=== PATIENT | female | born 1940 | race Caucasian/White ===

== ENCOUNTER 2018-04-04 13:21 | Emergency (ER) | payer MEDICARE, BC ==
[~2018-04-04] VITALS: Ht 154.9 cm; Wt 116.1 kg
--- NOTE | 2018-04-04 13:31 | NUR ---
BIBRA 102, ELEVATED BP, HAD SYNCOPAL EPISODE YESTERDAY PER EMS. ALSO C/O SINUS AREA PAIN, DENIES CP, DIZZINESS, SOB, NUMBNESS/TINGLING @ THIS TIME. TOOK BP MEDS. TO ER BED 9, CHANGED TO GOWN, HOOKED TO MONITOR, DR COVARRUBIAS AT BEDSIDE.
[2018-04-04 13:39] LABS: BASOPHILS % (AUTO) 0.7 % (0.0-2.0); EOSINOPHILS % (AUTO) 2.5 % (0.0-6.0); HEMATOCRIT 43 % (33-45); HEMOGLOBIN 14.4 g/dL (11.5-14.8); LYMPHOCYTES # (AUTO) 1.6 /CMM (0.8-4.8); LYMPHOCYTES % (AUTO) 26.8 % (20.0-44.0); MEAN CORPUSCULAR HGB CONC 33 g/dl (31.0-36.0); MEAN CORPUSCULAR VOLUME 90 fL (82-100); MONOCYTES # (AUTO) 0.4 /CMM (0.1-1.30); MONOCYTES % (AUTO) 6.7 % (2.0-12.0); NEUTROPHILS # (AUTO) 3.9 /CMM (1.8-8.9); NEUTROPHILS % (AUTO) 63.3 % (43.0-81.0); PLATELET COUNT (AUTO) 255 /CMM (150-450); RED BLOOD CELL COUNT(AUTO) 4.81 MIL/uL (4.0-5.2); WHITE BLOOD COUNT (AUTO) 6.1 K/uL (4.3-11.0)
[2018-04-04] MEDS ORDERED: ALPR0.5T8 PO (13:40)
[2018-04-04] MEDS ORDERED: METF-440 PO (13:40)
[2018-04-04] MEDS ORDERED: METO25TA20 PO (13:40)
[2018-04-04] MEDS ORDERED: PANT40TA4 PO (13:40)
[2018-04-04] MEDS ORDERED: CITA20TA16 PO (13:40)
[2018-04-04] MEDS ORDERED: OXYB10TA PO (13:40)
[2018-04-04] MEDS ORDERED: HYDR-3976 PO (13:40)
[2018-04-04] MEDS ORDERED: ALLO100T PO (13:40)
[2018-04-04] MEDS ORDERED: ENAL1TAB9 PO (13:40)
[2018-04-04 13:45] LABS: CALCIUM, SERUM 9.2 mg/dL (8.5-10.1); CARBON DIOXIDE 30 mmol/L (21-32); CHLORIDE 99 mmol/L (98-107); CREATININE 1.3 mg/dL (0.6-1.3); GLUCOSE 222 mg/dL (74-106); POTASSIUM 3.8 mmol/L (3.5-5.1); SODIUM SERUM 135 mmol/L (136-145); UREA NITROGEN, BLOOD 25 mg/dL (7-18)
[2018-04-04 14:36] VITALS: BP 168/96
--- NOTE | 2018-04-04 14:36 | NUR ---
Patient discharged to home in stable condition. Written and verbal after care instructions given. Patient verbalizes understanding of instruction.
== END 2018-04-04 14:37 | disposition home or self-care (01) ==
LOC: ER 13:25
DX: I10 Essential (primary) hypertension (principal); G89.29 Other chronic pain; I44.5 Left posterior fascicular block; I45.10 Unspecified right bundle-branch block; R51 Headache; R42 Dizziness and giddiness; Z98.890 Other specified postprocedural states; Z79.84 Long term (current) use of oral hypoglycemic drugs; Z79.899 Other long term (current) drug therapy
CPT/HCPCS: 36415; 70450-TC; 71045-TC; 80048-TC; 84484-TC; 85025-TC

== ENCOUNTER 2018-07-16 10:26 | Inpatient (IN) | payer MEDICARE, BC ==
[~2018-07-16] VITALS: Ht 162.6 cm; Wt 117.0 kg
[~2018-07-16 10:26] MED LIST: ALLO100T PO; ALPR0.5T8 PO; CITA20TA16 PO; ENAL1TAB9 PO; HYDR-3976 PO; METF-440 PO; METO25TA20 PO; OXYB10TA PO; PANT40TA4 PO
--- NOTE | 2018-07-16 10:35 | NUR ---
BIBRA S/P SYNCOPAL EPISODE AT HOME WHILE COOKING, WAS FOUND ON THE FLOOR BY . ALSO C/O BACK PAIN. TO ER BED 12, HOOKED TO MONITOR, CHANGED TO GOWN, PROVIDED W WARM BLANKET, AWAITING MD GARDUNO.
--- NOTE | 2018-07-16 10:36 | NUR ---
ARASELI COLINDRES AT BEDSIDE
[2018-07-16 10:53] LABS: BASOPHILS % (AUTO) 0.7 % (0.0-2.0); EOSINOPHILS % (AUTO) 4.3 % (0.0-6.0); HEMATOCRIT 41 % (33-45); HEMOGLOBIN 13.3 g/dL (11.5-14.8); LYMPHOCYTES # (AUTO) 1.8 /CMM (0.8-4.8); LYMPHOCYTES % (AUTO) 25.9 % (20.0-44.0); MEAN CORPUSCULAR HGB CONC 33 g/dl (31.0-36.0); MEAN CORPUSCULAR VOLUME 92 fL (82-100); MONOCYTES # (AUTO) 0.5 /CMM (0.1-1.30); NEUTROPHILS # (AUTO) 4.3 /CMM (1.8-8.9); NEUTROPHILS % (AUTO) 62.1 % (43.0-81.0); PLATELET COUNT (AUTO) 232 /CMM (150-450); RED BLOOD CELL COUNT(AUTO) 4.41 MIL/uL (4.0-5.2)
[2018-07-16] MEDS ORDERED: IV NS 0.9% 500 ML BAG IV ONE (11:00)
[2018-07-16 11:01] LABS: CALCIUM, SERUM 8.9 mg/dL (8.5-10.1); CARBON DIOXIDE 23 mmol/L (21-32); CHLORIDE 103 mmol/L (98-107); CREATININE 1.2 mg/dL (0.6-1.3); GLUCOSE 187 mg/dL (74-106); SODIUM SERUM 140 mmol/L (136-145); UREA NITROGEN, BLOOD 25 mg/dL (7-18)
[2018-07-16] MEDS ORDERED: ESCI20TA PO (11:06)
--- NOTE | 2018-07-16 12:09 | NUR ---
307 TELE SYNCOPE VANDANA DNP
[2018-07-16] MEDS ORDERED: LABETALOL 20 MG/4 ML VIAL IV ONE (12:30)
--- NOTE | 2018-07-16 12:30 | NUR ---
REPORT GIVEN TO OLIMPIA BRYANT OF TELE UNIT
[2018-07-16 15:30] VITALS: BP 186/72
--- NOTE | 2018-07-16 15:30 | NUR ---
MOTEL FRONT DESK ATTENDANTFEED MIXER NOTE PT ARRIVED TO TELE UNIT IN STABLE CONDITION VIA GURNEY ACCOMPANIED BY ER STAFF. PT IS A/O X4, AFEBRILE. RESPIRATIONS ARE EVEN AND UNLABORED, NOT IN ANY ACUTE DISTRESS NOTED. PT C/O GENERALIZED PAIN W/ PL /10. NO C/O SOB, N/V. PUPILS ARE REACTIVE TO LIGHT, BILATERAL HAND WIRER HELPER ARE STRONG AND EQUAL. ABDOMEN IS ROUND AND FIRM, DENIES ANY BLADDER DISCOMFORT AND IS INCONTINENT. IV SITE TO LEFT HAND 20G INTACT, NO INFILTRATION NOTED. DRESSING KEPT CLEAN AND DRY. DISCOLORATION NOTED TO BLE, REDNESS TO BREAST FOLDS AND BILATERAL HEELS, LESIONS NOTED TO RIGHT/LEFT LOWER BACK. PICTURES TAKEN AND PLACED IN CHART. NO OPEN SKIN NOTED. SKIN KEPT CLEAN AND DRY. INSTRUCTED PT TO USE CALL LIGHT WHEN ASSISTANCE IS NEEDED, CALL LIGHT IS LEFT WITHIN REACH. DR. ROSS AWARE OF ADMISSION. WILL CONTINUE TO MONITOR THROUGHOUT SHIFT FOR CONTINUITY OF CARE.
[2018-07-16 16:00] VITALS: BP 186/72
--- NOTE | 2018-07-16 19:25 | NUR ---
RN NOTES CALLED DR. NICK ROSS AND ASKED HIM FOR ADMISSION ORDER.. PT IS ALREADY COMPLAINING OF BACK PAIN... DR. NICK ROSS WILL PUT THE ORDER IN THE COMPUTER
[2018-07-16] MEDS ORDERED: ALPRAZOLAM 0.5 MG TABLET PO PRN (19:30)
--- NOTE | 2018-07-16 19:30 | NUR ---
whipped topping finisher notes Received PT from morning nurse. PT is alert and oriented X4. PT is sitting at the bed. No pain or any distress at tis time. No nausea or vomiting. Respiration is equal and unlabored. No SOB. PT is on corporate financial analyst SR. IV is intact, patent and flush without resistance. Safety precautions is maintained. Bed at low position and call light is within reach. Will continue to monitor.
[2018-07-16 20:00] VITALS: BP 172/74
[2018-07-16] MEDS ORDERED: ONDANSETRON HCL/PF 4 MG/2 ML VIAL IVP PRN (20:00)
[2018-07-16] MEDS ORDERED: ACETAMINOPHEN 325 MG TABLET PO PRN (20:00)
[2018-07-16] MEDS ORDERED: DEXTROSE 50%-WATER 50 ML DISP.SYRIN IV PRN (20:00)
[2018-07-16] MEDS ORDERED: Z GUARD REMEDY 2 OZ OINT TP PRN (20:00)
[2018-07-16] MEDS: HYDROCODONE/APAP 10/325MG 1 EA TABLET PO PRN (20:01)
--- NOTE | 2018-07-16 20:04 | NUR ---
RN NOTES COMPLAINED OF TERRIBLE BACK PAIN- NORCO 10/325MG PO GIVEN ORDERED, V/S STABLE
[2018-07-16] MEDS: BLOOD SUGAR DIAGNOSTIC 1 EACH STRIP IN SCH (21:22)
--- NOTE | 2018-07-16 22:00 | NUR ---
RN NOTES blood sugar-179, refused insulin coverage
[2018-07-17] VITALS (7 sets, daily range): BP systolic 136–177; BP diastolic 68–86
[2018-07-17] MEDS ORDERED: Z GUARD REMEDY 4 OZ OINT TP ONE (05:33)
[2018-07-17] MEDS: HYDROCODONE/APAP 10/325MG 1 EA TABLET PO PRN ×2 (05:35→16:32)
--- NOTE | 2018-07-17 05:37 | NUR ---
RN NOTES COMPLAINED OF BACK PAIN - NORCO 10/325 MG PO GIVEN ORDERED, V/S STABLE
[2018-07-17] MEDS: BLOOD SUGAR DIAGNOSTIC 1 EACH STRIP IN SCH ×4 (05:58→23:17)
--- NOTE | 2018-07-17 06:20 | NUR ---
pigeon fancier notes continue PT is on color television console monitor - SR 73 bpm.
--- NOTE | 2018-07-17 06:20 | NUR ---
glassware maker demonstrator notes PT is alert and oriented X4. PT is sitting at the bed. No complaint of pain or any distress at this time. Respiration is equal and unlabored. NO SOB. VS is stable. IV site is intact, patent and infusing well NS at 75ml/hr. All meds including Pain meds have been given and assist all needs. Safety precautions is maintained. Bed at low position and call light is within reach. Will endorse to morning shift for PETRA.
[2018-07-17 06:43] LABS: BASOPHILS % (AUTO) 0.5 % (0.0-2.0); EOSINOPHILS % (AUTO) 4.3 % (0.0-6.0); HEMATOCRIT 42 % (33-45); HEMOGLOBIN 13.8 g/dL (11.5-14.8); LYMPHOCYTES # (AUTO) 1.9 /CMM (0.8-4.8); LYMPHOCYTES % (AUTO) 26.3 % (20.0-44.0); MEAN CORPUSCULAR HGB CONC 33 g/dl (31.0-36.0); MEAN CORPUSCULAR VOLUME 91 fL (82-100); MONOCYTES # (AUTO) 0.5 /CMM (0.1-1.30); MONOCYTES % (AUTO) 7.2 % (2.0-12.0); NEUTROPHILS # (AUTO) 4.3 /CMM (1.8-8.9); NEUTROPHILS % (AUTO) 61.7 % (43.0-81.0); PLATELET COUNT (AUTO) 250 /CMM (150-450); RED BLOOD CELL COUNT(AUTO) 4.63 MIL/uL (4.0-5.2)
--- NOTE | 2018-07-17 07:34 | NUR ---
REAL ESTATE ANALYST OPENING NOTES RECEIVED PT RESTING ON BED. AWAKE, A/O X4. ON SUPPLEMENTARY OXYGEN AT 2-3LPM, WITH NO ACUTE RESPIRATORY DISTRESS NOTED. ON TELEMONITORING WITH SR, HR OF 70. PT STATED SHE HAS LOWER BACK PAIN AND JUST HAD NORCO, AWARE IT TAKES TIME TO TAKE EFFECT. IVF NS AT 75ML/HR TO LEFT HAND G20, INTACT AND INFUSING WELL. PT DENIES ANY CONCERNS AND QUESTIONS AT THIS MOMENT. PT KEPT COMFORTABLE IN BED. HOB ELEVATED. CALL LIGHT AND FLUID KEPT WITHIN REACH. PT'S BED IN LOWEST, LOCKED POSITION WITH SR X2. WILL CONTINUE PLAN OF CARE.
[2018-07-17 07:46] LABS: ALANINE AMINOTRANSFERASE 38 U/L (12-78); ALBUMIN 3.3 g/dL (3.4-5.0); ALKALINE PHOSPHATASE 71 U/L (46-116); ASPARTATE AMINOTRANSFERASE 24 U/L (15-37); BILIRUBIN,TOTAL 0.5 mg/dL (0.2-1.0); CALCIUM, SERUM 9.1 mg/dL (8.5-10.1); CARBON DIOXIDE 27 mmol/L (21-32); CHLORIDE 103 mmol/L (98-107); CREATININE 1.2 mg/dL (0.6-1.3); GLUCOSE 138 mg/dL (74-106); MAGNESIUM 1.7 mg/dL (1.8-2.4); PHOSPHORUS 4.6 mg/dL (2.5-4.9); POTASSIUM 4.3 mmol/L (3.5-5.1); SODIUM SERUM 140 mmol/L (136-145); TOTAL PROTEIN, SERUM 7.8 g/dL (6.4-8.2); UREA NITROGEN, BLOOD 18 mg/dL (7-18)
[2018-07-17 07:53] LABS: CHOLESTEROL 196 mg/dL (<200); HDL CHOLESTEROL 51 mg/dL (40-60); LDL 115 mg/dL (0-99); THYROID STIMULATING HORMONE 4.073 uIU/mL (0.358-3.74); TRIGLYCERIDES 203 mg/dL (30-150)
[2018-07-17] MEDS: PANTOPRAZOLE 40 MG TABLET.DR PO SCH (07:58)
[2018-07-17] MEDS: ALLOPURINOL 100 MG TABLET PO SCH (08:18)
[2018-07-17] MEDS: METFORMIN 500 MG TABLET PO SCH ×2 (08:18→16:19)
[2018-07-17] MEDS: ESCITALOPRAM OXALATE (10 MG) 10 MG TABLET PO SCH (08:19)
[2018-07-17] MEDS: ENOXAPARIN SODIUM 40 MG/0.4 ML DISP.SYRIN SQ SCH (08:20)
[2018-07-17] MEDS ORDERED: OXYBUTYNIN CHLORIDE ER 5 MG TAB PO SCH (09:00)
[2018-07-17] MEDS: Magnesium 1GM/D5W 100ML PREMIX 100 ML IV SCH ×2 (09:22→10:27)
[2018-07-17] MEDS: LOSARTAN POTASSIUM 50 MG TABLET PO SCH (09:22)
--- NOTE | 2018-07-17 09:37 | NUR ---
WEB MARKETING SPECIALIST NOTES CALLED PHARMACY TWICE REGARDING OXYBUTYRIN MEDICINE. SPOKE TO WILY, STATED "HOLD IT FOR NOW, WORKING ON IT." PT MADE AWARE. AWAITING FOR MEDICINE TO [facility].
[2018-07-17] MEDS: INSULIN REGULAR, HUMAN 100 UNIT/ML 3 ML VIAL SQ PRN ×2 (12:01→17:22)
--- NOTE | 2018-07-17 14:30 | NUR ---
SHIM PLUG CUTTER NOTES PT TECHNICALLY DID NOT MISS A DOSE OF DITROPAN XL SCHEDULED AT 0900 DUE TO PHARMACY WASN'T ABLE TO PROVIDE THE MEDICINE. PHARMACY WAS CALLED TWICE AND SPOKE TO SULEMA REGARDING MEDICINE EARLIER THIS MORNING AND BEFORE LUNCH TIME, UNTIL MEDICINE WAS DISCONTINUED, AND SHOWS MISSED DOSE AND CHANGED TO A NEW MEDICINE; WITHOUT SULEMA NOTIFYING RN IN CHARGE OF THE CHANGE. JIMMY/RADHA MADE AWARE WELL.
[2018-07-17] MEDS: IV NS 0.9% 1,000 ML IV PRN (14:57)
[2018-07-17] MEDS: OXYBUTYNIN CHLORIDE 5 MG TABLET PO SCH (16:20)
--- NOTE | 2018-07-17 18:40 | NUR ---
AEROSPACE CONTROL AND WARNING SYSTEMS OPENING NOTES PT REMAINS RESTING ON BED. AWAKE, A/O X4. ON SUPPLEMENTARY OXYGEN AT 2LPM, WITH NO ACUTE RESPIRATORY DISTRESS NOTED. ON TELEMONITORING WITH SR, HR OF 98. PT DENIES PAIN AT THIS MOMENT. IVF NS AT 75ML/HR TO LEFT HAND G20, INTACT AND INFUSING WELL. PT DENIES ANY CONCERNS AND QUESTIONS AT THIS MOMENT. ALL NEEDS AND CARE PROVIDED. PT KEPT COMFORTABLE IN BED. HOB ELEVATED. CALL LIGHT AND FLUID KEPT WITHIN REACH. PT'S BED IN LOWEST, LOCKED POSITION WITH SR X2. WILL ENDORSE TO INCOMING NIGHT NURSE FOR PETRA. Addendum: 07/17/18 at 1842 by BRAIN PADILLA RN TELE CLOSING NOTES INSTEAD OF 'OPENING'
--- NOTE | 2018-07-17 19:10 | NUR ---
RESPIRATORY ASSISTANT NOTES RECEIVED PT IN BED AWAKE AND ABLE TO MAKE NEEDS KNOWN. PT A/O X4. RESPIRATIONS EVEN AND UNLABORED WITH NO S/S OF ACUTE DISTRESS OR SOB NOTED. PT DENIES PAIN AT THIS TIME. SAFETY MEASURES IN PLACE WITH BED IN LOWEST LOCKED POSITION AND SIDE RAILS UP X2. CALL LIGHT WITHIN REACH. WILL CONTINUE TO MONITOR.
--- NOTE | 2018-07-17 22:40 | NUR ---
TOPPER PRESS OPERATOR NOTES PT REFUSED INSULIN COVERAGE.
[2018-07-18] VITALS: BP 158/72
[2018-07-18] MEDS: HYDROCODONE/APAP 10/325MG 1 EA TABLET PO PRN ×3 (00:31→14:37)
[2018-07-18 04:00] VITALS: BP 139/70
[2018-07-18] MEDS: IV NS 0.9% 1,000 ML IV PRN (07:09)
[2018-07-18] MEDS: BLOOD SUGAR DIAGNOSTIC 1 EACH STRIP IN SCH ×4 (07:16→22:03)
--- NOTE | 2018-07-18 07:17 | NUR ---
VEHICLE MAINTENANCE TECHNICIAN NOTES PT REFUSED MORNING INSULIN COVERAGE.
--- NOTE | 2018-07-18 07:30 | NUR ---
FIXING MACHINE OPERATOR OPENING NOTES RECEIVED PT RESTING ON BED. AWAKE, A/O X4. ON SUPPLEMENTARY OXYGEN AT 2-3LPM, WITH NO ACUTE RESPIRATORY DISTRESS NOTED. ON TELEMONITORING WITH SR, HR OF 96. PT DENIES ANY PAIN AT THIS MOMENT. IVF NS AT 75ML/HR TO LEFT HAND G20, INTACT AND INFUSING WELL. PT DENIES ANY CONCERNS AND QUESTIONS AT THIS MOMENT. PT KEPT COMFORTABLE IN BED. HOB ELEVATED. CALL LIGHT AND FLUID KEPT WITHIN REACH. PT'S BED IN LOWEST, LOCKED POSITION WITH SR X2. WILL CONTINUE PLAN OF CARE.
--- NOTE | 2018-07-18 07:53 | NUR ---
SUPERVISOR DIE CASTING NOTES PT IN BED AWAKE AND ABLE TO MAKE NEEDS KNOWN. PT A/O X4. RESPIRATIONS EVEN AND UNLABORED WITH NO S/S OF ACUTE DISTRESS OR SOB NOTED THROUGHOUT SHIFT. PT DENIES PAIN AT THIS TIME. SAFETY MEASURES IN PLACE WITH BED IN LOWEST LOCKED POSITION AND SIDE RAILS UP X2. CALL LIGHT WITHIN REACH. WILL ENDORSE TO ONCOMING NURSE FOR PETRA.
[2018-07-18 08:00] VITALS: BP 162/74
[2018-07-18] MEDS: PANTOPRAZOLE 40 MG TABLET.DR PO SCH (08:00)
[2018-07-18] MEDS: METFORMIN 500 MG TABLET PO SCH ×2 (08:00→16:10)
[2018-07-18] MEDS: OXYBUTYNIN CHLORIDE 5 MG TABLET PO SCH ×2 (08:00→16:10)
[2018-07-18] MEDS: ESCITALOPRAM OXALATE (10 MG) 10 MG TABLET PO SCH (08:00)
[2018-07-18] MEDS: ALLOPURINOL 100 MG TABLET PO SCH (08:00)
[2018-07-18] MEDS: LOSARTAN POTASSIUM 50 MG TABLET PO SCH (08:03)
[2018-07-18] MEDS: ENOXAPARIN SODIUM 40 MG/0.4 ML DISP.SYRIN SQ SCH (08:05)
[2018-07-18 08:32] LABS: BASOPHILS # (AUTO) 0.1 /CMM (0.0-0.2); BASOPHILS % (AUTO) 0.9 % (0.0-2.0); EOSINOPHILS % (AUTO) 3.4 % (0.0-6.0); HEMATOCRIT 40 % (33-45); HEMOGLOBIN 13.1 g/dL (11.5-14.8); LYMPHOCYTES # (AUTO) 1.2 /CMM (0.8-4.8); MEAN CORPUSCULAR HGB CONC 33 g/dl (31.0-36.0); MEAN CORPUSCULAR VOLUME 92 fL (82-100); MONOCYTES # (AUTO) 0.6 /CMM (0.1-1.30); MONOCYTES % (AUTO) 8.6 % (2.0-12.0); NEUTROPHILS # (AUTO) 4.5 /CMM (1.8-8.9); NEUTROPHILS % (AUTO) 68.1 % (43.0-81.0); PLATELET COUNT (AUTO) 199 /CMM (150-450); RED BLOOD CELL COUNT(AUTO) 4.31 MIL/uL (4.0-5.2); WHITE BLOOD COUNT (AUTO) 6.5 K/uL (4.3-11.0)
[2018-07-18] MEDS: VALSARTAN 80 MG TABLET PO SCH (09:22)
[2018-07-18 10:00] VITALS: BP 142/68
[2018-07-18 10:07] LABS: ALANINE AMINOTRANSFERASE 32 U/L (12-78); ALKALINE PHOSPHATASE 67 U/L (46-116); ASPARTATE AMINOTRANSFERASE 19 U/L (15-37); BILIRUBIN,TOTAL 0.4 mg/dL (0.2-1.0); CALCIUM, SERUM 8.6 mg/dL (8.5-10.1); CARBON DIOXIDE 27 mmol/L (21-32); CHLORIDE 103 mmol/L (98-107); CREATININE 1.3 mg/dL (0.6-1.3); GLUCOSE 193 mg/dL (74-106); MAGNESIUM 1.8 mg/dL (1.8-2.4); PHOSPHORUS 3.7 mg/dL (2.5-4.9); POTASSIUM 4.2 mmol/L (3.5-5.1); SODIUM SERUM 138 mmol/L (136-145); TOTAL PROTEIN, SERUM 7.3 g/dL (6.4-8.2); UREA NITROGEN, BLOOD 17 mg/dL (7-18)
--- NOTE | 2018-07-18 10:57 | NUR ---
WOUND CARE CONSULT: PT PRESENTS WITH RASH TO BREASTFOLDS, ABDOMINAL/GROIN FOLDS AND BACK, PRESENT ON ADMISSION. RECOMMENDATIONS MADE FOR SKIN PROTECTION AND CARE OF RASH. DISCUSSED WITH NURSING STAFF. WILL SEE PRN. CASTELLON IN AGREEMENT WITH PLAN OF CARE. CURRENT POORNIMA SCORE IS 15. Addendum: 07/18/18 at 1102 by SILVANO BALLESTEROS WNDNU Amended: Links added.
[2018-07-18] MEDS ORDERED: IOHEXOL-350 100 ML VIAL IV ONE (14:05)
[2018-07-18] MEDS ORDERED: IV NS 0.9% 250 ML IV ONE (14:05)
[2018-07-18] MEDS ORDERED: CT SWABBABLE VALVE TRANS SET 1 EA INFUS.SET MC ONE (14:05)
--- NOTE | 2018-07-18 14:30 | NUR ---
MS RN NOTES PT CAME BACK FROM RADIOLOGY. PT REFUSED TO HAVE CTA OF BRAIN DUE TO SEVERE PAIN IN HER LOWER BACK WHEN LAYING FLAT. RN OFFERED TO BE PRE MEDICATED, PT ANSWERED "I DON'T WANT TO DO THAT PROCEDURE AT ALL." JIMMY/CRYSTAL AWARE AND /DR DAVIS MADE AWARE. AWAITING FOR RESPONSE.
[2018-07-18 16:00] VITALS: BP 134/85
[2018-07-18] MEDS: CLOTRIMAZOLE 1% 15 GM TUBE TP SCH (16:38)
--- NOTE | 2018-07-18 19:06 | NUR ---
MS RN CLOSING NOTES PT REMAINS RESTING ON BED. AWAKE, A/O X4. ON SUPPLEMENTARY OXYGEN AT 2LPM, WITH NO ACUTE RESPIRATORY DISTRESS NOTED. PT DENIES PAIN AT THIS MOMENT. PT AWARE OF NEW ORDER MORPHIN 4MG IV. IVF NS AT 75ML/HR TO LAC G18, INTACT AND INFUSING WELL. PIV TO LEFT HAND G20, FLUSHED WITH NS, INTACT AND OPERATIONAL. ALL NEEDS AND CARE PROVIDED. PT KEPT COMFORTABLE IN BED. HOB ELEVATED. CALL LIGHT AND FLUID KEPT WITHIN REACH. PT'S BED IN LOWEST, LOCKED POSITION WITH SR X2. WILL ENDORSE TO INCOMING NIGHT NURSE FOR PETRA.
[2018-07-18 20:00] VITALS: BP 153/78
[2018-07-18] MEDS: MORPHINE SULFATE INJ 4 MG/ML DISP.SYRIN IV PRN (21:09)
[2018-07-19 06:39] LABS: BASOPHILS % (AUTO) 0.2 % (0.0-2.0); EOSINOPHILS % (AUTO) 3.3 % (0.0-6.0); HEMATOCRIT 37 % (33-45); HEMOGLOBIN 12.2 g/dL (11.5-14.8); LYMPHOCYTES # (AUTO) 1.2 /CMM (0.8-4.8); LYMPHOCYTES % (AUTO) 19.8 % (20.0-44.0); MEAN CORPUSCULAR HGB CONC 33 g/dl (31.0-36.0); MEAN CORPUSCULAR VOLUME 92 fL (82-100); MONOCYTES # (AUTO) 0.5 /CMM (0.1-1.30); MONOCYTES % (AUTO) 8.5 % (2.0-12.0); NEUTROPHILS # (AUTO) 4.2 /CMM (1.8-8.9); NEUTROPHILS % (AUTO) 68.2 % (43.0-81.0); PLATELET COUNT (AUTO) 201 /CMM (150-450); RED BLOOD CELL COUNT(AUTO) 4.04 MIL/uL (4.0-5.2); WHITE BLOOD COUNT (AUTO) 6.1 K/uL (4.3-11.0)
[2018-07-19 06:55] LABS: CALCIUM, SERUM 8.3 mg/dL (8.5-10.1); CARBON DIOXIDE 27 mmol/L (21-32); CHLORIDE 104 mmol/L (98-107); CREATININE 1.2 mg/dL (0.6-1.3); GLUCOSE 147 mg/dL (74-106); MAGNESIUM 1.8 mg/dL (1.8-2.4); POTASSIUM 4.2 mmol/L (3.5-5.1); SODIUM SERUM 139 mmol/L (136-145); UREA NITROGEN, BLOOD 21 mg/dL (7-18)
[2018-07-19 07:07] LABS: *SPE A/G RATIO 0.7 (0.7-1.7); *SPE ALBUMIN 2.9 g/dL (2.9-4.4); *SPE ALPHA-1-GLOBULIN 0.2 g/dL (0.0-0.4); *SPE ALPHA-2-GLOBULIN 0.8 g/dL (0.4-1.0); *SPE M-SPIKE 0.8 g/dL (Not Observed)
--- NOTE | 2018-07-19 07:23 | NUR ---
MS RN NOTES PT IN BED AWAKE AND ABLE TO MAKE NEEDS KNOWN. PT A/O X4. RESPIRATIONS EVEN AND UNLABORED WITH NO S/S OF ACUTE DISTRESS OR SOB NOTED THROUGHOUT SHIFT. PT DENIES PAIN AT THIS TIME. SAFETY MEASURES IN PLACE WITH BED IN LOWEST LOCKED POSITION AND SIDE RAILS UP X2. CALL LIGHT WITHIN REACH. WILL ENDORSE TO ONCOMING NURSE FOR PETRA.
--- NOTE | 2018-07-19 07:24 | NUR ---
MS/RN OPENING NOTE PATIENT IN BED IN STABLE CONDITION. A/O X 4. NO SIGNS OF ACUTE DISTRESS. NO COMPLAIN OF PAIN OR DISCOMFORT. ALL NEEDS ATTENDED TO. CALL LIGHT WITHIN REACH. WILL CONTINUE TO MONITOR TO ENSURE SAFETY.
[2018-07-19] MEDS: BLOOD SUGAR DIAGNOSTIC 1 EACH STRIP IN SCH ×4 (07:41→21:12)
[2018-07-19 08:00] VITALS: BP 176/76
[2018-07-19] MEDS: ALLOPURINOL 100 MG TABLET PO SCH (08:13)
[2018-07-19] MEDS: OXYBUTYNIN CHLORIDE 5 MG TABLET PO SCH ×2 (08:14→16:29)
[2018-07-19] MEDS: HYDROCODONE/APAP 10/325MG 1 EA TABLET PO PRN ×2 (08:14→16:29)
[2018-07-19] MEDS: METFORMIN 500 MG TABLET PO SCH ×2 (08:14→16:29)
[2018-07-19] MEDS: VALSARTAN 80 MG TABLET PO SCH (08:14)
[2018-07-19] MEDS: ESCITALOPRAM OXALATE (10 MG) 10 MG TABLET PO SCH (08:14)
[2018-07-19] MEDS: PANTOPRAZOLE 40 MG TABLET.DR PO SCH (08:14)
[2018-07-19] MEDS: ENOXAPARIN SODIUM 40 MG/0.4 ML DISP.SYRIN SQ SCH (08:16)
[2018-07-19] MEDS: METOPROLOL TARTRATE 50 MG TABLET PO SCH ×2 (08:39→21:13)
--- NOTE | 2018-07-19 11:30 | NUR ---
MS/RN SEEN BY DR THAI ANDERSEN WITH ORDERS TO [facility]IBLE [facility].
[2018-07-19] MEDS: CLOTRIMAZOLE 1% 15 GM TUBE TP SCH ×2 (11:46→16:31)
[2018-07-19] MEDS: INSULIN REGULAR, HUMAN 100 UNIT/ML 3 ML VIAL SQ PRN (11:46)
[2018-07-19 16:00] VITALS: BP 146/59
--- NOTE | 2018-07-19 18:25 | NUR ---
MS/RN CLOSING NOTE PATIENT IN BED IN STABLE CONDITION. A/O X 3. NO SIGNS OF ACUTE DISTRESS. NO COMPLAIN OF PAIN OR DISCOMFORT. ALL NEEDS ATTENDED TO. CALL LIGHT WITHIN REACH. WILL ENDORSE TO NEXT SHIFT FOR CONTINUITY OF CARE.
[2018-07-19 20:00] VITALS: BP 138/75
--- NOTE | 2018-07-19 20:00 | NUR ---
MS RN NOTES RECEIVED PATIENT AWAKE IN BED AND WATCHING TV WITH NO DISTRESS NOTED. CALL LIGHT WITHIN REACH. NO C/O PAIN OR DISCOMFORT. PERIPHERAL LINE INTACT, PATENT, AND SALINE LOCKED. BED IN LOW LOCK SETTING. BED ALARM ON AND FUNCTIONING PROPERLY. ENCOURAGED USE OF CALL LIGHT FOR ASSISTANCE AND VERBALIZED GOOD UNDERSTANDING. ROOM FREE OF CLUTTER AND BELONGINGS KEPT NEAR BEDSIDE. WILL CONTINUE TO MONITOR.
[2018-07-20] MEDS: HYDROCODONE/APAP 10/325MG 1 EA TABLET PO PRN ×2 (02:05→09:02)
--- NOTE | 2018-07-20 06:23 | NUR ---
MS RN NOTES PATIENT ASLEEP IN BED WITH NO DISTRESS NOTED. CALL LIGHT WITHIN REACH. ALL DUE MEDS GIVEN ORDERED WITH NO ASE NOTED. NO FURTHER C/O PAIN OR DISCOMFORT. PERIPHERAL LINE INTACT AND PATENT. BED IN LOW LOCK SETTING. BED ALARM ON AND FUNCTIONING PROPERLY. ALL BELONGINGS KEPT NEAR BEDSIDE. WILL ENDORSE TO ONCOMING SHIFT.
--- NOTE | 2018-07-20 07:30 | NUR ---
RN OPENING NOTE PT WAS RECEIVED IN BED AT LOWEST AND LOCKED POSITION WITH SIDE RAILS UP X2, A/O X4 BREATHING EVEN AND UNLABORED ON 2L VIA NC, NO S/S OF ANY DISTRESS OR PAIN AT THIS TIME, IV IS PATENT AND INTACT, PLAN IS TO BE D/C TODAY TO [facility] ACCORDING TO UNDERGROUND REPAIRER RN, ACCUCHECK WNL WITH NO COVERAGE GIVEN THIS AM, SAFETY PRECAUTIONS IN PLACE, CALL LIGHT WITHIN REACH, WILL MONITOR PT ACCORDINGLY
[2018-07-20] MEDS: BLOOD SUGAR DIAGNOSTIC 1 EACH STRIP IN SCH ×2 (07:33→12:18)
[2018-07-20 08:00] VITALS: BP 130/62
[2018-07-20] MEDS: ESCITALOPRAM OXALATE (10 MG) 10 MG TABLET PO SCH (08:24)
[2018-07-20] MEDS: PANTOPRAZOLE 40 MG TABLET.DR PO SCH (08:24)
[2018-07-20] MEDS: ALLOPURINOL 100 MG TABLET PO SCH (08:24)
[2018-07-20] MEDS: OXYBUTYNIN CHLORIDE 5 MG TABLET PO SCH (08:24)
[2018-07-20 08:25] VITALS: BP 130/62
[2018-07-20] MEDS: METFORMIN 500 MG TABLET PO SCH (08:25)
[2018-07-20] MEDS: VALSARTAN 80 MG TABLET PO SCH (08:25)
[2018-07-20] MEDS: METOPROLOL TARTRATE 50 MG TABLET PO SCH (08:25)
[2018-07-20] MEDS: ENOXAPARIN SODIUM 40 MG/0.4 ML DISP.SYRIN SQ SCH (08:27)
[2018-07-20] MEDS: CLOTRIMAZOLE 1% 15 GM TUBE TP SCH (08:36)
[2018-07-20] MEDS ORDERED: METO50TA16 PO (09:41)
[2018-07-20] MEDS ORDERED: VALS80TA2 PO (09:41)
[2018-07-20] MEDS ORDERED: IV NS 0.9% 250 ML IV ONE (11:20)
[2018-07-20] MEDS ORDERED: IOHEXOL-350 100 ML VIAL IV ONE (11:20)
[2018-07-20] MEDS ORDERED: CT SWABBABLE VALVE TRANS SET 1 EA INFUS.SET MC ONE (11:20)
[2018-07-20] MEDS: MORPHINE SULFATE INJ 4 MG/ML DISP.SYRIN IV PRN (11:22)
--- NOTE | 2018-07-20 12:14 | NUR ---
RN NOTE PT BROUGHT BACK FROM CTA OF THE BRAIN, WILL HOLD METFORMIN FOR 48 HOURS AND MONITOR PT ACCORDINGLY.
--- NOTE | 2018-07-20 12:19 | NUR ---
RN NOTE PT BLOOD GLUCOSE WAS NOTED TO BE 134 AT THIS TIME, NO INSULIN GIVEN DUE TO PATIENT RECEIVING METFORMIN IN THE AM. WILL MONITOR ACCORDINGLY
--- NOTE | 2018-07-20 14:54 | NUR ---
RN NOTE REPORT GIVEN TO BRIGIDO AT [facility] AT THIS TIME.
--- NOTE | 2018-07-20 15:40 | NUR ---
DISCHARGE NOTE PT WAS D/C AT THIS TIME IN MEDICALLY STABLE CONDITION TO [facility] AT THIS TIME WHERE REPORT WAS GIVEN TO BRIGIDO. ALL EXITCARE, BELONGINGS LIST, AND D/C PAPERWORK WERE SIGNED, DISCUSSED, AND HANDED TO THE PATIENT. IV AND ID BAND WERE REMOVED. PHOTOS OF SKIN WERE TAKEN AND DOCUMENTED IN THE CHART. ALL NEEDS WERE ATTENDED TO DURING HER STAY. PT WAS TAKEN BY EMT CREW AT THIS TIME WHERE SHE LEFT IN MEDICALLY STABLE CONDITION.
== END 2018-07-20 16:15 | DRG 312 ==
LOC: ER 10:27 → TELE 12:09 → MED 07-18 08:58
PROVIDERS: ADMIT Nurse Practitioner Acute Care; ATTEND Nurse Practitioner Acute Care
DX: I95.1 Orthostatic hypotension (principal); Z68.41 Body mass index [BMI] 40.0-44.9, adult; H93.19 Tinnitus, unspecified ear; G47.33 Obstructive sleep apnea (adult) (pediatric); E66.01 Morbid (severe) obesity due to excess calories; G89.4 Chronic pain syndrome; E83.42 Hypomagnesemia; E11.9 Type 2 diabetes mellitus without complications; Z79.84 Long term (current) use of oral hypoglycemic drugs; Z87.891 Personal history of nicotine dependence; Z98.84 Bariatric surgery status; E11.65 Type 2 diabetes mellitus with hyperglycemia; E11.42 Type 2 diabetes mellitus with diabetic polyneuropathy; I10 Essential (primary) hypertension; R42 Dizziness and giddiness
CPT/HCPCS: 36415; 70450-TC; 70496-TC; 71045-TC; 80048-TC; 80053-TC; 80061-TC; 82962-TC; 83735-TC; 84100-TC; 84155; 84165; 84439-TC; 84443-TC; 84484-TC; 85025-TC; 86850-TC; 87081-TC; 93307-TC; 93880-TC; 97110-TC; 97116-TC; 97530-TC; A6403; G0378; J1650; J1815; J2270; J2405; J3475; J3490; J7030; J7040; J7050; Q9967

== ENCOUNTER 2018-08-15 17:34 | Inpatient (IN) | payer MEDICARE, BC ==
[~2018-08-15] VITALS: Ht 154.9 cm; Wt 112.9 kg
[~2018-08-15 17:34] MED LIST changes: -CITA20TA16 PO; -ENAL1TAB9 PO; +ESCI20TA PO; -METO25TA20 PO; +METO50TA16 PO; +VALS80TA2 PO
--- NOTE | 2018-08-15 17:46 | NUR ---
PT BIBRA FROM HOME TO ER BED 02. C/O LUMBAR BACK AND MOSTLY HER LEFT SIDE S/P GLF AROUND 1330 TODAY. PT DENIES HEAD TRAUMA, DENIES KO. PLACED ON MONITOR. HYPERTENSIVE INSPECTOR FIBROUS WALLBOARD. AWAITING MD GARDUNO.
--- NOTE | 2018-08-15 17:58 | NUR ---
DR JAMIL AT BEDSIDE FOR EVAL.
[2018-08-15] MEDS ORDERED: MORPHINE SULFATE INJ 2 MG/ML DISP.SYRIN IV ONE (18:00)
[2018-08-15] MEDS ORDERED: IV NS 0.9% 500 ML BAG IV ONE (18:00)
[2018-08-15] MEDS ORDERED: MORPHINE SULFATE INJ 4 MG/ML DISP.SYRIN ONE (18:20)
[2018-08-15 18:24] LABS: BASOPHILS # (AUTO) 0.1 /CMM (0.0-0.2); BASOPHILS % (AUTO) 1.3 % (0.0-2.0); EOSINOPHILS % (AUTO) 2.2 % (0.0-6.0); HEMATOCRIT 43 % (33-45); LYMPHOCYTES % (AUTO) 10.8 % (20.0-44.0); MEAN CORPUSCULAR HGB CONC 33 g/dl (31.0-36.0); MEAN CORPUSCULAR VOLUME 93 fL (82-100); MONOCYTES # (AUTO) 0.4 /CMM (0.1-1.30); MONOCYTES % (AUTO) 4.5 % (2.0-12.0); NEUTROPHILS # (AUTO) 7.7 /CMM (1.8-8.9); NEUTROPHILS % (AUTO) 81.2 % (43.0-81.0); PLATELET COUNT (AUTO) 249 /CMM (150-450); WHITE BLOOD COUNT (AUTO) 9.6 K/uL (4.3-11.0)
[2018-08-15 18:34] LABS: CALCIUM, SERUM 9.6 mg/dL (8.5-10.1); CARBON DIOXIDE 26 mmol/L (21-32); CHLORIDE 102 mmol/L (98-107); GLUCOSE 150 mg/dL (74-106); POTASSIUM 3.9 mmol/L (3.5-5.1); SODIUM SERUM 139 mmol/L (136-145); UREA NITROGEN, BLOOD 20 mg/dL (7-18)
[2018-08-15 18:44] LABS: ALANINE AMINOTRANSFERASE 26 U/L (12-78); ALBUMIN 3.4 g/dL (3.4-5.0); ALKALINE PHOSPHATASE 144 U/L (46-116); ASPARTATE AMINOTRANSFERASE 24 U/L (15-37); BILIRUBIN,DIRECT 0.1 mg/dL (0.0-0.2); BILIRUBIN,TOTAL 0.4 mg/dL (0.2-1.0); LIPASE 72 U/L (73-393); TOTAL PROTEIN, SERUM 8.2 g/dL (6.4-8.2)
[2018-08-15] MEDS ORDERED: LORAZEPAM INJ 2 MG/ML VIAL ONE (18:57)
[2018-08-15] MEDS ORDERED: LORAZEPAM INJ 2 MG/ML VIAL IV ONE (19:00)
--- NOTE | 2018-08-15 19:15 | NUR ---
REPORT GIVEN TO NADINE BRYANT FOR PETRA.
--- NOTE | 2018-08-15 19:30 | NUR ---
resting in bed in stable condition. vss. will cont to monitor ,
--- NOTE | 2018-08-15 19:33 | NUR ---
REPORT GIVEN TO NICO BRYANT FOR PETRA.
[2018-08-15] MEDS ORDERED: HYDROCODONE/APAP 5/325MG 1 EACH TABLET ONE (20:38)
[2018-08-15] MEDS ORDERED: METOPROLOL TARTRATE INJ 5 MG/5 ML AMPUL IVP STA (20:42)
[2018-08-15] MEDS ORDERED: METOPROLOL TARTRATE INJ 5 MG/5 ML AMPUL ONE (20:45)
[2018-08-15] MEDS ORDERED: HYDROCODONE/APAP 5/325MG 1 EACH TABLET PO ONE (21:00)
--- NOTE | 2018-08-15 22:50 | NUR ---
MS [id number]
[2018-08-15] MEDS ORDERED: LABETALOL HCL IV 100MG VIAL ONE (22:53)
[2018-08-15] MEDS ORDERED: HYDROMORPHONE 1 MG/1 ML DISP.SYRIN ONE (22:54)
[2018-08-15] MEDS ORDERED: LABETALOL HCL IV 100MG VIAL IV PRN (23:00)
[2018-08-15] MEDS ORDERED: HYDROMORPHONE 1 MG/1 ML DISP.SYRIN IV PRN (23:00)
[2018-08-15] MEDS ORDERED: IV NS 0.9% 1,000 ML IV PRN (23:21)
--- NOTE | 2018-08-15 23:29 | NUR ---
report given to Michelle. daughter: Irene [phone]
[2018-08-15] MEDS ORDERED: ACETAMINOPHEN 325 MG TABLET PO PRN (23:30)
[2018-08-15] MEDS ORDERED: ONDANSETRON HCL/PF 4 MG/2 ML VIAL IVP PRN (23:30)
[2018-08-15] MEDS ORDERED: CLONIDINE HCL 0.1 MG TABLET PO PRN (23:30)
[2018-08-15] MEDS ORDERED: ALPRAZOLAM 0.5 MG TABLET PO PRN (23:30)
[2018-08-15] MEDS ORDERED: MAGNESIUM HYDROXIDE 30 ML UDC PO PRN (23:30)
[2018-08-15] MEDS ORDERED: MAG HYDROX/AL HYDROX/SIMETH 30 ML UDC PO PRN (23:30)
[2018-08-15] MEDS ORDERED: Z GUARD REMEDY 2 OZ OINT TP PRN (23:30)
--- NOTE | 2018-08-15 23:37 | NUR ---
CHAD QUEEN [phone]
[2018-08-16] VITALS: BP 158/68
--- NOTE | 2018-08-16 | NUR ---
RN MS ADMITTING OPENING NOTES RECEIVED PATIENT FROM ER VIA GURNEY SAFELY TRANSFERRED TO BED , TOLERATED TRANSFER WELL, RESPIRATIONS EVEN AND UNLABORED WITH EQUAL RISE AND FALL OF CHEST, ON 2 L VIA NC. C/O BACK MIDDLE PAIN HOWEVER STATES "MEDICATION IN ER HAS PROVIDED RELIEF", PERINEAL CARE PROVIDED, BED BATH GIVEN , BODY ASSESSMENT DONE, PICTURES TAKEN, BELONGINGS LIST DONE, REPOSITIONED SACRAL AND HEELS, OFFLOADED, IV SITE TO LEFT HAND #20G INTACT AND PATENT, NO REDNESS, NO INFILTRATION, HOSPITALIST AWARE OF ADMISSION AWAITING ORDERS AND WILL FOLLOW ORDERED, AT THIS TIME, ALL NEEDS WERE ADDRESS, PATIENT REMAINS COMFORTABLE WILL CONTINUE TO MONITOR.
--- NOTE | 2018-08-16 00:14 | NUR ---
TRANSFERRED TO 323 INSTABLE CONDITION UNDER ACLS PROTOCOL
[2018-08-16 06:33] LABS: BASOPHILS % (AUTO) 0.4 % (0.0-2.0); EOSINOPHILS % (AUTO) 2.6 % (0.0-6.0); HEMATOCRIT 38 % (33-45); HEMOGLOBIN 12.5 g/dL (11.5-14.8); LYMPHOCYTES # (AUTO) 1.6 /CMM (0.8-4.8); LYMPHOCYTES % (AUTO) 24.7 % (20.0-44.0); MEAN CORPUSCULAR HGB CONC 33 g/dl (31.0-36.0); MEAN CORPUSCULAR VOLUME 92 fL (82-100); MONOCYTES # (AUTO) 0.5 /CMM (0.1-1.30); MONOCYTES % (AUTO) 6.9 % (2.0-12.0); NEUTROPHILS # (AUTO) 4.3 /CMM (1.8-8.9); NEUTROPHILS % (AUTO) 65.4 % (43.0-81.0); PLATELET COUNT (AUTO) 244 /CMM (150-450); RED BLOOD CELL COUNT(AUTO) 4.17 MIL/uL (4.0-5.2); WHITE BLOOD COUNT (AUTO) 6.6 K/uL (4.3-11.0)
[2018-08-16 06:48] LABS: CALCIUM, SERUM 8.4 mg/dL (8.5-10.1); CARBON DIOXIDE 27 mmol/L (21-32); CHLORIDE 105 mmol/L (98-107); GLUCOSE 135 mg/dL (74-106); MAGNESIUM 1.6 mg/dL (1.8-2.4); PHOSPHORUS 5.1 mg/dL (2.5-4.9); POTASSIUM 3.8 mmol/L (3.5-5.1); SODIUM SERUM 142 mmol/L (136-145); UREA NITROGEN, BLOOD 17 mg/dL (7-18)
[2018-08-16] MEDS: HYDROCODONE/APAP 5/325MG 1 EACH TABLET PO PRN (06:50)
--- NOTE | 2018-08-16 06:52 | NUR ---
RN MS CLOSING NOTES PATIENT IN BED AWAKE ALERT AND ORIENTED X4, RESPIRATIONS EVEN AND UNLABORED WITH EQUAL RISE AND FALL OF CHEST, STATES PAIN 9/10 TO LEFT AND RIGHT SIDE OF BACK, OFFERED PRN NORCO ORDERED , PATIENT AGREED AND GIVEN, ON 2 L NC FOR COMFORT, LEFT HAND #20G INTACT AND PATENT, NO REDNESS, NO INFILTRATION PRESENT, IVF RUNNING ORDERED, ALL NEEDS ATTENDED THROUGHOUT SHIFT, UNABLE TO TAKE ORTHOSTATICS UNABLE TO STAND, REPOSITIONED, FLUIDS OFFERED, ALL NEEDS ATTENDED THROUGHOUT SHIFT, WILL CONTINUE TO MONITOR AND ENDORSE TO NEXT SHIFT.
[2018-08-16 07:00] LABS: CHOLESTEROL 163 mg/dL (<200); HDL CHOLESTEROL 42 mg/dL (40-60); LDL 97 mg/dL (0-99); THYROID STIMULATING HORMONE 2.641 uIU/mL (0.358-3.74); TRIGLYCERIDES 174 mg/dL (30-150)
--- NOTE | 2018-08-16 07:26 | NUR ---
RN OPENING NOTE PT WAS RECEIVED IN BED AT LOWEST AND LOCKED POSITION WITH SIDE RAILS UP X2, A/O X4 BREATHING EVEN AND UNLABORED ON 2L, PER NIGHT RN KIMMY JUST GIVEN AROUND 0650, PER PATIENT SHE IS ABLE TO AMBULATE AT HOME WITH WALKER BUT CANNOT RIGHT NOW DUE TO PAIN, IV IS PATENT AND INTACT, NOTED TO NOT HAVE ANY ACUTE FRACTURES, SAFETY PRECAUTIONS IN PLACE, CALL LIGHT WITHIN REACH, WILL MONITOR PT ACCORDINGLY
[2018-08-16] MEDS ORDERED: PANTOPRAZOLE 40 MG TABLET.DR PO SCH (07:30)
[2018-08-16 08:00] VITALS: BP 169/71
[2018-08-16] MEDS: CARISOPRODOL 350 MG TABLET PO SCH ×4 (08:11→21:18)
[2018-08-16] MEDS: PANTOPRAZOLE 40 MG TABLET.DR PO SCH (08:11)
[2018-08-16] MEDS: OXYBUTYNIN CHLORIDE 5 MG TABLET PO SCH ×2 (08:11→16:03)
[2018-08-16] MEDS: ESCITALOPRAM OXALATE (10 MG) 10 MG TABLET PO SCH (08:11)
[2018-08-16] MEDS: ALLOPURINOL 100 MG TABLET PO SCH (08:11)
[2018-08-16] MEDS: VALSARTAN 80 MG TABLET PO SCH (08:12)
[2018-08-16] MEDS: METOPROLOL TARTRATE 50 MG TABLET PO SCH ×2 (08:12→21:19)
[2018-08-16] MEDS: ENOXAPARIN SODIUM 40 MG/0.4 ML DISP.SYRIN SQ SCH (08:13)
--- NOTE | 2018-08-16 09:36 | NUR ---
WOUND CARE CONSULT: PT PRESENTS WITH BRUISES AND RASHES TO SKIN FOLDS, PRESENT ON ADMISSION. PT IS INCONTINENT. RECOMMENDATIONS MADE FOR SKIN PROTECTION AND CARE. DISCUSSED WITH NURSING STAFF. RECOMMEND LOW AIRLOSS BED (ISOFLEX). WILL SEE PRN. CURRENT POORNIMA SCORE IS 15. Addendum: 08/16/18 at 0937 by SILAVNO BALLESTEROS WNDNU Amended: Links added.
[2018-08-16] MEDS ORDERED: HYDROMORPHONE INJ 0.5 MG/0.5 ML SYRINGE IV PRN (10:30)
[2018-08-16] MEDS: Magnesium 1GM/D5W 100ML PREMIX 100 ML IV SCH ×2 (11:55→12:43)
[2018-08-16] MEDS ORDERED: HYDROMORPHONE 1 MG/1 ML DISP.SYRIN IV PRN (12:30)
[2018-08-16] MEDS: HYDROMORPHONE 1 MG/1 ML DISP.SYRIN IV PRN ×2 (12:38→16:39)
--- NOTE | 2018-08-16 12:57 | NUR ---
Social service consult requested by ZACH Tovar for Advance Directive. Pt is a 77-year-old female admitted to [facility] for intractable back pain. SW met with pt bedside. Pt is alert and oriented x 4. Pt. was cooperative with SW during the assessment. Pt's mood was congruent. Pt states she resides at home ([address] [address]) with her family. Pts emergency contact is her Bernadette Chou ([phone]) and daughter Kae [phone]. Pt states she has a great support system at home from her sister, daughter, granddaughter and . Pt states she receives SSI in the amount of 2500. Pt needs assistance with ADLs pt reports she has a home care assistant (provided by the [place]) that aids her with her ADLs. lunchroom worker provided education regarding Advance Directive, pt understood and had no further questions. Pt reported that her decision makers would be her José Antonio ([phone]) or Daughter Kae ([phone]). Per pts request social welfare clerk filed blank Advance Directive in pts chart to be given back to pt at discharge. Pt is requesting to be discharged back home once medically cleared. Pt. currently denies suicidal and homicidal ideations and visual/auditory hallucinations at this time. No other social service needs are requested at this time. SW is available, if needed.
[2018-08-16 13:11] VITALS: BP 159/71
[2018-08-16] MEDS: CLOTRIMAZOLE 1% 15 GM TUBE TP SCH ×2 (14:08→16:04)
[2018-08-16 16:00] VITALS: BP 150/76
--- NOTE | 2018-08-16 18:40 | NUR ---
RN CLOSING NOTE PT IN BED AT LOWEST AND LOCKED POSITION WITH SIDE RAILS UP X2, A/O X4 BREATHING EVEN AND UNLABORED ON 2L RESTING COMFORTABLY WITH FAMILY PRESENT AT BEDSIDE, IV IS PATENT AND INTACT, SAFETY PRECAUTIONS IN PLACE, CALL LIGHT WITHIN REACH, ALL NEEDS ATTENDED TO, WILL ENDORSE TO CAR HEAD LINER INSTALLER RN FOR PETRA.
--- NOTE | 2018-08-16 19:20 | NUR ---
RN OPEN NOTES RECEIVED PATIENT AWAKE IN BED. A/O X4. NO SIGNS OF DISTRESS OR DISCOMFORT. BREATHING EVEN AND UNLABORED. ON 2LPM O2 VIA NC. IV ACCESS IN L HAND, PATENT AND INTACT, NO SIGNS OF REDNESS OR INFILTRATION. BED IN LOW LOCKED POSITION WITH SIDE RAILS X3. CALL LIGHT WITHIN REACH. WILL CONTINUE TO MONITOR.
[2018-08-16] MEDS ORDERED: DEXTROSE 50%-WATER 50 ML DISP.SYRIN IV PRN (19:30)
[2018-08-16 20:00] VITALS: BP 139/72
[2018-08-16] MEDS: BLOOD SUGAR DIAGNOSTIC 1 EACH STRIP IN SCH (21:19)
[2018-08-16] MEDS: INSULIN REGULAR, HUMAN 100 UNIT/ML 3 ML VIAL SQ PRN (21:21)
[2018-08-17] MEDS: HYDROMORPHONE 1 MG/1 ML DISP.SYRIN IV PRN ×3 (02:40→14:06)
--- NOTE | 2018-08-17 02:40 | NUR ---
RN NOTES ADMINISTERED DILAUDID .5MG ORDERED FOR LOWER BACK PAIN 10/08, AT PATIENT REQUEST. VSS. WILL CONTINUE TO MONITOR.
[2018-08-17] MEDS: BLOOD SUGAR DIAGNOSTIC 1 EACH STRIP IN SCH ×4 (06:47→21:54)
--- NOTE | 2018-08-17 07:20 | NUR ---
RN CLOSING NOTES PATIENT RESTING IN BED, EASILY AROUSABLE. A/O X4. NO SIGNS OF DISTRESS OR DISCOMFORT. BREATHING EVEN AND UNLABORED. ON 2LPM O2 VIA NC. IV ACCESS IN L HAND, PATENT AND INTACT, NO SIGNS OF REDNESS OR INFILTRATION. ALL NEEDS MET. NO SIGNIFICANT CHANGES THROUGH THE NIGHT. BED IN LOW LOCKED POSITION WITH SIDE RAILS X3. CALL LIGHT WITHIN REACH. ENDORSED TO AM SHIFT FOR PETRA.
--- NOTE | 2018-08-17 07:29 | NUR ---
RN OPENING NOTE PT RECEIVED IN BED AT LOWEST AND LOCKED POSITION WITH SIDE RAILS UP X2, A/O X4 BREATHING EVEN AND UNLABORED ON 2L, CURRENTLY ASLEEP IN BED WITH NO S/S OF ANY DISTRESS OR PAIN, IV IS PATENT AND INTACT, SAFETY PRECAUTIONS IN PLACE, CALL LIGHT WITHIN REACH, WILL MONITOR PT ACCORDINGLY
[2018-08-17 07:43] LABS: ALANINE AMINOTRANSFERASE 31 U/L (12-78); ALBUMIN 2.9 g/dL (3.4-5.0); ALKALINE PHOSPHATASE 117 U/L (46-116); ASPARTATE AMINOTRANSFERASE 19 U/L (15-37); BILIRUBIN,TOTAL 0.4 mg/dL (0.2-1.0); CALCIUM, SERUM 8.9 mg/dL (8.5-10.1); CARBON DIOXIDE 27 mmol/L (21-32); CHLORIDE 104 mmol/L (98-107); CREATININE 1.1 mg/dL (0.6-1.3); GLUCOSE 116 mg/dL (74-106); MAGNESIUM 1.9 mg/dL (1.8-2.4); PHOSPHORUS 4.2 mg/dL (2.5-4.9); POTASSIUM 3.9 mmol/L (3.5-5.1); SODIUM SERUM 140 mmol/L (136-145); TOTAL PROTEIN, SERUM 7.2 g/dL (6.4-8.2); UREA NITROGEN, BLOOD 16 mg/dL (7-18)
[2018-08-17 08:00] VITALS: BP 150/73
[2018-08-17] MEDS: PANTOPRAZOLE 40 MG TABLET.DR PO SCH (08:21)
[2018-08-17] MEDS: OXYBUTYNIN CHLORIDE 5 MG TABLET PO SCH ×2 (08:21→16:06)
[2018-08-17] MEDS: CARISOPRODOL 350 MG TABLET PO SCH ×4 (08:22→21:34)
[2018-08-17] MEDS: VALSARTAN 80 MG TABLET PO SCH (08:22)
[2018-08-17] MEDS: ALLOPURINOL 100 MG TABLET PO SCH (08:22)
[2018-08-17] MEDS: ESCITALOPRAM OXALATE (10 MG) 10 MG TABLET PO SCH (08:22)
[2018-08-17] MEDS: METOPROLOL TARTRATE 50 MG TABLET PO SCH ×2 (08:22→21:34)
[2018-08-17] MEDS: HYDROCODONE/APAP 5/325MG 1 EACH TABLET PO PRN ×3 (08:23→17:39)
[2018-08-17] MEDS: ENOXAPARIN SODIUM 40 MG/0.4 ML DISP.SYRIN SQ SCH (08:24)
[2018-08-17] MEDS: CLOTRIMAZOLE 1% 15 GM TUBE TP SCH ×2 (08:25→16:06)
[2018-08-17] MEDS: INSULIN REGULAR, HUMAN 100 UNIT/ML 3 ML VIAL SQ PRN ×2 (11:50→22:01)
--- NOTE | 2018-08-17 12:31 | NUR ---
RN NOTE PT REFUSED TO BE TURNED, STATING SHE IS IN TO MUCH PAIN, NORCO WAS GIVEN, WILL MONITOR ACCORDINGLY
--- NOTE | 2018-08-17 14:50 | NUR ---
RN NOTE ATTEMPTED TO TURN THE PT AGAIN BUT SHE REFUSED AT THIS TIME
--- NOTE | 2018-08-17 15:30 | NUR ---
RN NOTE PT REFUSED LOTRIMIN CREAM AND ZGUARD ON BREAST FOLD, GROIN AND ANTERIOR ABD FOLD AT THIS TIME. WAS OKAY WITH CREAMS ON POSTERIOR BACK FOLDS
[2018-08-17 16:00] VITALS: BP 138/67
--- NOTE | 2018-08-17 17:36 | NUR ---
RN NOTE PT UNABLE TO EAT DUE TO NOT BEING ABLE TO SIT UP DUE TO BEING IN TO MUCH PAIN, WILL NOT ADMINISTER INSULIN AT THIS TIME FOR A BLOOD GLUCOSE OF 137, WILL GIVE NORCO AND MONITOR PT ACCORDINGLY
[2018-08-17] MEDS: ACETAMINOPHEN 325 MG TABLET PO SCH (18:35)
--- NOTE | 2018-08-17 18:46 | NUR ---
RN CLOSING NOTE PT IN BED AT LOWEST AND LOCKED POSITION WITH SIDE RAILS UP X2, A/O X4 BREATHING EVEN AND UNLABORED, JUST SEEN BY WITH NEW PAIN MED ORDERS, CURRENTLY COMPLAINS OF PAIN 9 OUT OF 10, IV IS PATENT AND INTACT, SAFETY PRECAUTIONS IN PLACE, CALL LIGHT WITHIN REACH, WILL ENDORSE TO CLINICAL PROJECT MANAGER RN FOR PETRA.
--- NOTE | 2018-08-17 19:15 | NUR ---
MS MARCY INITIAL NOTES WHILE RECEIVING REPORT FROM AM NURSE GEREMIAS , I SAW PT IN BED RESTING WITH EYES CLOSED RESPIRATION EVEN AND NON-LABORED NOT IN ANY DISTRESS NOTED. DINNER TRAY STILL AT THE BEDSIDE. BED SIDE IN LOW AND LOCK IN POSITION WITH SIDE RAILS X2 UP AND BED ALARM SET FOR SAFETY. WILL CONTINUE MONITORING. PLACE CALL LIGHT AT REACH. Addendum: 08/17/18 at 1954 by DELLA MORRISON RN DISREGARD THIS NOTE. ANOTHER NURSE ACCIDENTALLY CHARTING ON MY NOTES.
--- NOTE | 2018-08-17 19:30 | NUR ---
MS BANKING MANAGER NOTES PAIN MGT PT WOKE UP AND CALLED FOR ANOTHER PAIN MEDS , COMPLAINING OF LOWER BACK PAIN , I SPOKE TO HER THAT HER PAIN MEDICATION STILL NOT DUE BUT THEY HAVE A NEW ORDER OF MEDICATION THAT WILL HELP HER FOR HER DISCOMFORT. VITAL SIGNS WITHIN NORMAL LIMIT , EDUCATE PATIENT REGARDING THE POSSIBLE SIDE EFFECT AND PT UNDERSTOOD WELL AND ALSO I TOLD HER ANOTHER NURSE WILL ADMINISTER HER MEDICATION BIANKA IVP. KEPT HER WARM AND COMFORTABLE AT ALL TIMES.
[2018-08-17] MEDS: KETOROLAC TROMETHAMINE 15 MG/ML VIAL IV SCH (19:39)
--- NOTE | 2018-08-17 19:39 | NUR ---
MS VIDAL NOTES PAIN MGT. DELLA/ANNETTE ADMINISTERED TORADOL BIANKA IVP ORDERED. REPOSITION PT FOR COMFORT. PLACE CALL LIGHT AT REACH. WILL CONTINUE MONITORING.
[2018-08-17 20:00] VITALS: BP 122/65
--- NOTE | 2018-08-17 22:02 | NUR ---
MS SOUND ENGINEERING TECHNICIAN NOTES BLOOD SUGAR CHECKED 117 NO INSULIN COVERAGES AT THIS TIME. NO SIGNS OF HYPO GLYCEMIA NOTED. PER PT TORADOL WORKS BETTER . KEPT HER COMFORTABLE AT ALL TIMES. PLACE CALL LIGHT AT REACH. WILL CONTINUE MONITORING.
[2018-08-18] MEDS: ACETAMINOPHEN 325 MG TABLET PO SCH ×3 (02:30→18:30)
--- NOTE | 2018-08-18 02:30 | NUR ---
ms durability engineer notes pt sleeping comfortably in bed without any distress noted.
[2018-08-18] MEDS: KETOROLAC TROMETHAMINE 15 MG/ML VIAL IV SCH ×3 (04:02→19:00)
--- NOTE | 2018-08-18 04:07 | NUR ---
PAIN MANAGEMENT Patient in bed, awake, A/O x3. Given IV Ketorolac as scheduled for pain management, education provided, indication and possible side effect explained. Will cont to monitor, maintained safety.
[2018-08-18] MEDS: BLOOD SUGAR DIAGNOSTIC 1 EACH STRIP IN SCH ×4 (06:27→22:00)
[2018-08-18] MEDS: PANTOPRAZOLE 40 MG TABLET.DR PO SCH (06:42)
--- NOTE | 2018-08-18 07:25 | NUR ---
M/S RN NOTES PATIENT AWAKE IN BED, NO RESPIRATORY DISTRESS, PAIN TOLERABLE AT THIS TIME WITHOUT ACTIVITY. SKIN WARM TO TOUCH. IV ACCESS SITE INTACT AND PATENT. PATIENT'S NEEDS ATTENDE. BED ON LOWEST LOCKED POSITION, CALL LIGHT WITHIN REACH. WILL CONTINUE TO MONITOR.
--- NOTE | 2018-08-18 07:29 | NUR ---
ms criminal justice lawyer closing notes pt awake and alert after morning care done as well as her skin tx. no signs of any discomfort or any distress noted at this time . she stated she feel better after the toradol and thank you for your helped. all due meds given and slept well. blood sugar checked done 91, no insulin coverage at this time. kept her warm and comfortable at all times. be din low and lock in position with side rails x3 up and place call light at reach. endorse to am nurse Jimena for continuity of care.
[2018-08-18 08:00] VITALS: BP 133/69
[2018-08-18 08:07] LABS: IMMUNOGLOBULIN A, SERUM 413 mg/dL (64-422); IMMUNOGLOBULIN G, SERUM 1484 mg/dL (700-1600); IMMUNOGLOBULIN M, SERUM 65 mg/dL (26-217)
[2018-08-18] MEDS: ESCITALOPRAM OXALATE (10 MG) 10 MG TABLET PO SCH (09:23)
[2018-08-18] MEDS: VALSARTAN 80 MG TABLET PO SCH (09:25)
[2018-08-18] MEDS: OXYBUTYNIN CHLORIDE 5 MG TABLET PO SCH ×2 (09:25→17:28)
[2018-08-18] MEDS: ALLOPURINOL 100 MG TABLET PO SCH (09:25)
[2018-08-18] MEDS: METOPROLOL TARTRATE 50 MG TABLET PO SCH ×2 (09:26→18:11)
[2018-08-18] MEDS: ENOXAPARIN SODIUM 40 MG/0.4 ML DISP.SYRIN SQ SCH (09:27)
[2018-08-18] MEDS: CARISOPRODOL 350 MG TABLET PO SCH ×4 (09:29→20:28)
[2018-08-18] MEDS: CLOTRIMAZOLE 1% 15 GM TUBE TP SCH ×2 (09:30→17:27)
[2018-08-18] MEDS: HYDROCODONE/APAP 5/325MG 1 EACH TABLET PO PRN ×2 (10:50→22:00)
[2018-08-18] MEDS: INSULIN REGULAR, HUMAN 100 UNIT/ML 3 ML VIAL SQ PRN (12:07)
[2018-08-18] MEDS ORDERED: Hydrocodone/Apap 10/325MG PO (12:43)
[2018-08-18] MEDS ORDERED: HYDR-3972 PO (12:43)
[2018-08-18 15:10] LABS: *SPE A/G RATIO 0.9 (0.7-1.7); *SPE ALBUMIN 3.2 g/dL (2.9-4.4); *SPE ALPHA-1-GLOBULIN 0.2 g/dL (0.0-0.4); *SPE ALPHA-2-GLOBULIN 0.8 g/dL (0.4-1.0); *SPE BETA GLOBULIN 1.1 g/dL (0.7-1.3); *SPE GLOBULIN, TOTAL 3.5 g/dL (2.2-3.9); *SPE M-SPIKE Not Observed g/dL (Not Observed); *SPEGAMMA GLOBULIN 1.4 g/dL (0.4-1.8)
--- NOTE | 2018-08-18 17:30 | NUR ---
M/S RN NOTES AMBULANCE CAME TO ASSEMBLER BRAZER PATIENT, PATIENT'S BLOOD PRESSURE AT 190/87, 86. PATIENT GIVEN LOPRESSOR PER CHARGE NURSE. CALLED [facility] TO NOTIFY OF BLOOD PRESSURE AND SAID THAT PATIENT IS OKAY FOR THEM TO ADMIT IF SBP <170. PATIENT'S BLOOD PRESSURE IS AT 164/61, HR 60. ENDORSEED TO NIGHT NURSE TO CALL AMBULNZ FOR ASSEMBLER BRAZER.
--- NOTE | 2018-08-18 17:35 | NUR ---
M/S RN NOTES PATIENT REFUSED SACRAL PHOTO AND UPPER AND MID BACK PHOTOS TO BE TAKEN PRIOR TO DISCHARGE DUE TO PAIN WITH ACTIVITY. PHOTOS OF BOTH HEELS, RT ABDOMINAL FOLD AND BOTH BREAST FOLDS TAKEN ONLY FOR SKIN PHOTOS.
[2018-08-18] MEDS: HYDROCODONE/APAP 10/325MG 1 EA TABLET PO PRN (17:41)
--- NOTE | 2018-08-18 19:45 | NUR ---
RN OPENING NOTES RECEIVED PATIENT FROM ANNETTE MANCUSO. PATIENT IS RESTING, COMFORTABLY IN BED. PATIENT IS A/O X 4. ABLE TO STATE NEEDS. PATIENT IS AWAITING DISCHARGE STILL. DISCHARGE IS ON HOLD BECAUSE SBP IS STILL IN THE 180'S. NO IV SITE NOTED. NO SIGNS OF RESPIRATORY DISTRESS. DENIES SOB. SAFETY PRECAUTIONS IMPLEMENTED; CALL LIGHT WITHIN REACH, SIDE RAILS UP X2, BED LOW, BED LOCKED. WILL CONTINUE TO MONITOR PATIENT.
--- NOTE | 2018-08-18 19:50 | NUR ---
RN NOTES PATIENT HAS NO IV INSERTED. IT WAS DISCONTINUED BECAUSE AM NURSE THOUGHT PATIENT WAS LEAVING PRIOR TO PM SHIFT. OFFERED TO REINSERT AND PATIENT REFUSED. I EXPLAINED ALL THE BENEFITS SUCH RECEIVING PAIN MEDICATION VIA IV. PATIENT STILL REFUSED. WILL OFFER REINSERTION AGAIN LATER.
--- NOTE | 2018-08-18 21:50 | NUR ---
RN NOTES PATIENT WAS GIVEN CLONIDINE FOR SBP IN THE 180'S.
[2018-08-18] MEDS ORDERED: hydrALAZINE HCL 10 MG TABLET PO ONE (23:30)
--- NOTE | 2018-08-18 23:51 | NUR ---
RN NOTES BASIL SERRANO ORDERED HYDRALAZINE 10 MG PO NOW. UNABLE TO CREATE ORDER ON MY ACCOUNT. ASKED ANNETTE CULVER TO PUT IN ORDER ON MY BEHALF. CHARGE NURSE, MAURO AWARE OF INPUT.
--- NOTE | 2018-08-18 23:55 | NUR ---
RN NOTES HYDRALAZINE PO 10 MG NOW WAS ORDERED BY PRACTICING MD ANESTHESIOLOGISTBASIL. PATIENT RECEIVED MEDICATION FOR SBP IN THE 180'S
--- NOTE | 2018-08-19 00:05 | NUR ---
RN NOTES CALLED [facility]. NURSING STITCH BONDING MACHINE DRAWER IN STATES THEY WILL ACCEPT THE PATIENT ANYTIME LONG VITAL SIGNS ARE STABLE. WILL CONTINUE TO MONITOR PATIENT.
--- NOTE | 2018-08-19 00:17 | NUR ---
RN NOTES TRIED TO REINSERT IV LINE. UNABLE TO GET IT THE FIRST TIME. PATIENT REFUSES REINSERTION. I BRIEFED PATIENT IT IS FOR HER PAIN MEDICATION. PATIENT STILL REFUSES.
[2018-08-19 00:57] VITALS: BP 153/77
--- NOTE | 2018-08-19 01:05 | NUR ---
RN NOTES BLOOD PRESSURE AT THIS TIME 138/68, PULSE 55, RESPIRATIONS 20, O2 SAT 97%, TEMP 97.9
[2018-08-19 01:56] VITALS: BP 125/67
[2018-08-19] MEDS: HYDROCODONE/APAP 10/325MG 1 EA TABLET PO PRN (02:04)
[2018-08-19 02:36] VITALS: BP 119/57
[2018-08-19] MEDS: KETOROLAC TROMETHAMINE 15 MG/ML VIAL IV SCH (03:00)
[2018-08-19] MEDS: ACETAMINOPHEN 325 MG TABLET PO SCH (03:09)
--- NOTE | 2018-08-19 03:17 | NUR ---
RN NOTES PATIENT REFUSED TYLENOL 500 MG. PATIENT STATES HER PAIN IS AT A 3 AND DOES NOT NEED IT RIGHT NOW. PATIENT ALSO REFUSED TORADOL. WILL CONTINUE TO MONITOR PATIENT.
--- NOTE | 2018-08-19 03:18 | NUR ---
RN NOTES PULLED OUT TYLENOL FROM [facility]. OPENED MEDICATION AT BEDSIDE. PATIENT REFUSED AT BEDSIDE. WILL WASTE THE TYLENOL.
[2018-08-19 03:26] VITALS: BP 123/53
--- NOTE | 2018-08-19 03:30 | NUR ---
RN NOTES PATIENT STATES HER PAIN LEVEL IS CONSISTENTLY A 3/10 LOCATED IN THE BACK BUT WHEN SHE MOVES A LITTLE BIT IT JUMPS TO A 5/10 FOR A BRIEF MOMENT.
--- NOTE | 2018-08-19 03:42 | NUR ---
RN NOTES MARIANN CALLED TO SAY PICKUP TIME HAS BEEN PUSHED BACK. ETA 0530. WILL CONTINUE TO MONITOR PATIENT.
--- NOTE | 2018-08-19 03:44 | NUR ---
ANNETTE NOTES [facility] TRIP NUMBER: [id number]
[2018-08-19 04:47] VITALS: BP 156/79
--- NOTE | 2018-08-19 04:47 | NUR ---
ANIMAL HANDLER NOTES PATIENT WAS DISCHARGED AT 0440 VIA [facility], PICKED UP BY MARIANN. VITAL SIGNS UPON DISCHARGE: 156/79, P 62, RR20, O2 SAT96%, TEMP 98.7. BP WAS STABILIZED SINCE HYDRALIZINE WAS GIVEN. BP SHOT UP BECAUSE OF MOVEMENT TO TRANSFER TO [facility]. ALL PAPERWORK FINISHED AND SIGNED.
[2018-08-19 12:07] LABS: BETA-2 MICROGLOBULIN, SERUM 4.2 mg/L (0.6-2.4)
[2018-08-23] MEDS ORDERED: RXVAN XX (17:14)
[2018-08-23] MEDS ORDERED: VANC1.252 IV (17:14)
[2018-08-23] MEDS ORDERED: DEXA10VI2 IV (17:14)
[2018-08-23] MEDS ORDERED: LACT1CAP72 PO (17:14)
[2018-08-23] MEDS ORDERED: CEFT2FRO2 IV (17:14)
== END 2018-08-19 04:30 | DRG 552 ==
LOC: ER 17:39 → MED 22:39
PROVIDERS: ADMIT Registered Nurse; ATTEND Hospitalist
DX: M48.05 Spinal stenosis, thoracolumbar region (principal); Z68.42 Body mass index [BMI] 45.0-49.9, adult; E11.65 Type 2 diabetes mellitus with hyperglycemia; F41.9 Anxiety disorder, unspecified; E86.0 Dehydration; M45.9 Ankylosing spondylitis of unspecified sites in spine; I16.0 Hypertensive urgency; I10 Essential (primary) hypertension; G89.29 Other chronic pain; Z79.84 Long term (current) use of oral hypoglycemic drugs; Z79.899 Other long term (current) drug therapy; W01.0XXA Fall on same level from slipping, tripping and stumbling without subsequent striking against object, initial encounter; Y92.129 Unspecified place in nursing home as the place of occurrence of the external cause; Z98.84 Bariatric surgery status; Z96.649 Presence of unspecified artificial hip joint; Z87.891 Personal history of nicotine dependence; E66.01 Morbid (severe) obesity due to excess calories; M47.818 Spondylosis without myelopathy or radiculopathy, sacral and sacrococcygeal region; D47.2 Monoclonal gammopathy; M51.36 Other intervertebral disc degeneration, lumbar region; M70.60 Trochanteric bursitis, unspecified hip; G47.33 Obstructive sleep apnea (adult) (pediatric)
CPT/HCPCS: 36415; 72131-TC; 72192-TC; 77075-TC; 80048-TC; 80053-TC; 80061-TC; 80076-TC; 82232; 82784; 82962-TC; 83690-TC; 83735-TC; 84100-TC; 84155; 84165; 84443-TC; 85025-TC; 85730-TC; 86334; 87081-TC; 94799-TC; 97110-TC; 97112-TC; 97530-TC; G0378; J1170; J1650; J1815; J1885; J2060; J2270; J3475; J3490; J7030; J7040

== ENCOUNTER 2018-08-19 08:15 | Inpatient (IN) | payer MEDICARE, BC ==
[~2018-08-19] VITALS: Ht 154.9 cm; Wt 112.0 kg
[~2018-08-19 08:15] MED LIST changes: +HYDR-3972 PO; +Hydrocodone/Apap 10/325MG PO
--- NOTE | 2018-08-19 08:30 | NUR ---
BIB [facility] FOR DIFFUSED ABDOMINAL PAIN, SHARP, NONRADIATING X 2 WEEKS. PATIENT A/OX3, C/O PAIN, SCREAMING. ATTACHED TO THE MONITOR, IV LINE ESTABLISHED ON LFA G20. PATIENT IN NO DISTRESS. WILL CONTINUE TO MONITOR.
[2018-08-19 08:44] LABS: BASOPHILS % (AUTO) 0.2 % (0.0-2.0); EOSINOPHILS % (AUTO) 1.5 % (0.0-6.0); HEMATOCRIT 40 % (33-45); HEMOGLOBIN 13.4 g/dL (11.5-14.8); LYMPHOCYTES # (AUTO) 0.9 /CMM (0.8-4.8); MEAN CORPUSCULAR HGB CONC 33 g/dl (31.0-36.0); MEAN CORPUSCULAR VOLUME 93 fL (82-100); MONOCYTES # (AUTO) 0.3 /CMM (0.1-1.30); NEUTROPHILS # (AUTO) 7.3 /CMM (1.8-8.9); NEUTROPHILS % (AUTO) 85.3 % (43.0-81.0); PLATELET COUNT (AUTO) 259 /CMM (150-450); RED BLOOD CELL COUNT(AUTO) 4.37 MIL/uL (4.0-5.2); WHITE BLOOD COUNT (AUTO) 8.5 K/uL (4.3-11.0)
[2018-08-19 08:51] LABS: CALCIUM, SERUM 8.9 mg/dL (8.5-10.1); CARBON DIOXIDE 26 mmol/L (21-32); CHLORIDE 100 mmol/L (98-107); CREATININE 1.3 mg/dL (0.6-1.3); GLUCOSE 186 mg/dL (74-106); POTASSIUM 4.2 mmol/L (3.5-5.1); SODIUM SERUM 136 mmol/L (136-145); UREA NITROGEN, BLOOD 26 mg/dL (7-18)
[2018-08-19 09:04] LABS: ALANINE AMINOTRANSFERASE 50 U/L (12-78); ALBUMIN 3.2 g/dL (3.4-5.0); ALKALINE PHOSPHATASE 154 U/L (46-116); ASPARTATE AMINOTRANSFERASE 31 U/L (15-37); B-TYPE NATRIURETIC PEPTIDE 1711 PG/ML (0-125); BILIRUBIN,DIRECT 0.2 mg/dL (0.0-0.2); BILIRUBIN,TOTAL 0.6 mg/dL (0.2-1.0); LIPASE 67 U/L (73-393); TOTAL PROTEIN, SERUM 8.2 g/dL (6.4-8.2)
[2018-08-19] MEDS ORDERED: ONDANSETRON HCL/PF 4 MG/2 ML VIAL ONE (09:18)
[2018-08-19] MEDS ORDERED: HYDROMORPHONE 1 MG/1 ML DISP.SYRIN ONE (09:18)
[2018-08-19] MEDS ORDERED: HYDROMORPHONE INJ 2 MG/ML DISP.SYRIN IV ONE (09:30)
[2018-08-19] MEDS ORDERED: ONDANSETRON HCL/PF 4 MG/2 ML VIAL IVP ONE (09:30)
--- NOTE | 2018-08-19 10:19 | NUR ---
PANEL SENIOR CLINICAL RESEARCH ASSOCIATE PAGED
--- NOTE | 2018-08-19 11:13 | NUR ---
REPORT GIVEN TO GAYATRI BRYANT FOR PETRA
--- NOTE | 2018-08-19 11:30 | NUR ---
PATIENT TRANSFERRED TO ROOM 202, IN STABLE CONDITION. ENDORSED TO GAYATRI BRYANT FOR PETRA. JYOTHI, VSS.
--- NOTE | 2018-08-19 11:30 | NUR ---
ORCHID WORKER NOTES PT ARRIVED ONTO THE UNIT VIA GURNEY. PATIENT WAS DISCHARGED TODAY FROM [facility] AND TAKEN TO [facility]. PER REPORT PATIENT HAD ELEVATED BLOOD PRESSURE AND SEVERE BACK PAIN. PT HAS LEFT AC #20 IV INTACT AND PATENT. PT HAS REDNESS IN ABD AND HIP FOLD, PICTURES IN CHART. AWAITING ADMITTING ORDERS. SAFETY PRECAUTIONS IN PLACE, BED IN LOWEST LOCKED POSITION, X2 SIDE RAILS UP AND CALL LIGHT WITHIN REACH. WILL CONTINUE TO MONITOR.
[2018-08-19 12:00] VITALS: BP 134/73
[2018-08-19] MEDS ORDERED: ACETAMINOPHEN 325 MG TABLET PO PRN (12:00)
[2018-08-19] MEDS ORDERED: DEXTROSE 50%-WATER 50 ML DISP.SYRIN IV PRN (12:00)
[2018-08-19] MEDS ORDERED: MAGNESIUM HYDROXIDE 30 ML UDC PO PRN (12:00)
[2018-08-19] MEDS ORDERED: MAG HYDROX/AL HYDROX/SIMETH 30 ML UDC PO PRN (12:00)
[2018-08-19] MEDS: ENOXAPARIN SODIUM 40 MG/0.4 ML DISP.SYRIN SQ SCH (12:00)
[2018-08-19] MEDS ORDERED: HYDROCODONE/APAP 5/325MG 1 EACH TABLET PO PRN (12:00)
[2018-08-19] MEDS ORDERED: Z GUARD REMEDY 2 OZ OINT TP PRN (12:00)
[2018-08-19] MEDS ORDERED: ONDANSETRON HCL/PF 4 MG/2 ML VIAL IVP PRN (12:00)
[2018-08-19] MEDS: OXYBUTYNIN CHLORIDE 5 MG TABLET PO SCH (12:58)
[2018-08-19] MEDS: BLOOD SUGAR DIAGNOSTIC 1 EACH STRIP IN SCH ×3 (12:59→21:44)
[2018-08-19] MEDS: HYDROCODONE/APAP 10/325MG 1 EA TABLET PO PRN ×2 (13:30→22:12)
[2018-08-19] MEDS: IV NS 0.9% 1,000 ML IV PRN (13:52)
--- NOTE | 2018-08-19 15:30 | NUR ---
RN NOTES PER PUMPER BREWERY, PT UNABLE TO FIT IN MRI. INFORMED [facility] NP.
[2018-08-19 16:00] VITALS: BP 167/89
[2018-08-19] MEDS: INSULIN REGULAR, HUMAN 100 UNIT/ML 3 ML VIAL SQ PRN ×2 (17:43→21:47)
--- NOTE | 2018-08-19 18:51 | NUR ---
RN CLOSING NOTES AWAKE AND RESTING IN A CHAIR AT BEDSIDE. FAMILY AT BEDSIDE. PT HAS LEFT AC #20 IV RUNNING NS @75ML/HR. PT SEEN BY DR CERON, PER PT WANTS DAUGHTER TO SPEAK DR. SAFETY PRECAUTIONS IN PLACE, BED IN LOWEST LOCKED POSITION, X2 SIDE RAILS UP AND CALL LIGHT WITHIN REACH. WILL ENDORSE TO CONGRESSIONAL ASSISTANT NURSE FOR CONTINUITY OF CARE.
--- NOTE | 2018-08-19 19:22 | NUR ---
MS RN RECEIVE PT IN CHAIR A/O X 3, FAMILY AT BEDSIDE STABLE, NO S/S OF DISTRESS, SAFETY MEASURES IN PLACE. WILL CONTINUE TO MONITOR
[2018-08-19 20:00] VITALS: BP 153/73
[2018-08-19] MEDS: METOPROLOL TARTRATE 50 MG TABLET PO SCH (20:45)
--- NOTE | 2018-08-19 21:48 | NUR ---
BLOOD SUGAR 135 MG/DL PT REFUSED SLIDING SCALE OF 2 UNITS R INSULIN DESPITE EXPLAINING RISKS AND BENEFITS OFFERED 3 TIMES STILL REFUSED PT A/O X 4 PER PT "I DONT NEED INSULIN 2 UNITS RIGHT NOW IM OKAY"
[2018-08-19] MEDS: MORPHINE SULFATE INJ 2 MG/ML DISP.SYRIN IV PRN (22:55)
--- NOTE | 2018-08-19 22:55 | NUR ---
MS RN NOTES PT REQUESTED FOR MORPHINE 2MG IVP VS CHECKED BP 145/77 R 19 P 85 C/O LOW BACK PAIN
[2018-08-20] MEDS: MORPHINE SULFATE INJ 2 MG/ML DISP.SYRIN IV PRN ×2 (03:01→08:17)
[2018-08-20] MEDS: IV NS 0.9% 1,000 ML IV PRN ×2 (03:30→18:28)
[2018-08-20] MEDS: HYDROCODONE/APAP 10/325MG 1 EA TABLET PO PRN ×2 (06:00→15:42)
--- NOTE | 2018-08-20 06:18 | NUR ---
MS RN SLEPT WELL THROUGHOUT THE NIGHT. NO SIGNIFICANT CHANGES THROUGHOUT THE SHIFT. PT A/O X 3 WITH PERIOD OF FORGETFULNESS, RESPIRATIONS EVEN AND UNLABORED. 02 SAT AT 98%. KEPT CLEAN AND DRY AND COMFORTABLE. NEEDS ATTENDED AND ANTICIPATED, AM CARE RENDERED, OFFLOAD HEELS AND ELBOWS. ASSISTED REPOSITION EVERY 2 HOURS. PAIN MEDICATED WITH PRN PAIN MEDICINE WITH RELIEF, SAFETY MEASURES AT ALL TIMES. ENDORSE TO THE NEXT SHIFT.
[2018-08-20 06:21] LABS: BASOPHILS % (AUTO) 0.3 % (0.0-2.0); EOSINOPHILS % (AUTO) 0.9 % (0.0-6.0); HEMATOCRIT 41 % (33-45); HEMOGLOBIN 13.4 g/dL (11.5-14.8); LYMPHOCYTES # (AUTO) 0.8 /CMM (0.8-4.8); LYMPHOCYTES % (AUTO) 11.2 % (20.0-44.0); MEAN CORPUSCULAR HGB CONC 33 g/dl (31.0-36.0); MEAN CORPUSCULAR VOLUME 92 fL (82-100); MONOCYTES # (AUTO) 0.6 /CMM (0.1-1.30); MONOCYTES % (AUTO) 7.4 % (2.0-12.0); NEUTROPHILS % (AUTO) 80.2 % (43.0-81.0); PLATELET COUNT (AUTO) 271 /CMM (150-450); RED BLOOD CELL COUNT(AUTO) 4.41 MIL/uL (4.0-5.2); WHITE BLOOD COUNT (AUTO) 7.5 K/uL (4.3-11.0)
--- NOTE | 2018-08-20 06:31 | NUR ---
BLOOD SUGAR 137 MG/DL PT REFUSED SLIDING SCALE OF 2 UNITS R INSULIN DESPITE EXPLAINING RISKS AND BENEFITS OFFERED 3 TIMES STILL REFUSED PT A/O X 4 PT VERBALIZED "MY BLOOD SUGAR IS OKAY I DONT NEED INSULIN RIGHT NOW"
[2018-08-20] MEDS: INSULIN REGULAR, HUMAN 100 UNIT/ML 3 ML VIAL SQ PRN ×3 (06:33→18:11)
[2018-08-20] MEDS: BLOOD SUGAR DIAGNOSTIC 1 EACH STRIP IN SCH ×4 (06:34→21:25)
[2018-08-20 06:45] LABS: CHOLESTEROL 183 mg/dL (<200); HDL CHOLESTEROL 41 mg/dL (40-60); LDL 117 mg/dL (0-99); THYROID STIMULATING HORMONE 2.577 uIU/mL (0.358-3.74); TRIGLYCERIDES 167 mg/dL (30-150)
[2018-08-20 06:46] LABS: CALCIUM, SERUM 9.1 mg/dL (8.5-10.1); CARBON DIOXIDE 26 mmol/L (21-32); CHLORIDE 102 mmol/L (98-107); CREATININE 1.1 mg/dL (0.6-1.3); GLUCOSE 137 mg/dL (74-106); MAGNESIUM 1.9 mg/dL (1.8-2.4); PHOSPHORUS 3.5 mg/dL (2.5-4.9); POTASSIUM 4.3 mmol/L (3.5-5.1); SODIUM SERUM 140 mmol/L (136-145); UREA NITROGEN, BLOOD 22 mg/dL (7-18)
[2018-08-20 08:00] VITALS: BP 167/74
[2018-08-20] MEDS: PANTOPRAZOLE 40 MG TABLET.DR PO SCH (08:10)
[2018-08-20] MEDS: METOPROLOL TARTRATE 50 MG TABLET PO SCH ×2 (08:11→20:34)
[2018-08-20] MEDS: ESCITALOPRAM OXALATE (10 MG) 10 MG TABLET PO SCH (08:11)
[2018-08-20] MEDS: ALLOPURINOL 100 MG TABLET PO SCH (08:11)
[2018-08-20] MEDS: OXYBUTYNIN CHLORIDE 5 MG TABLET PO SCH (08:11)
[2018-08-20] MEDS: VALSARTAN 80 MG TABLET PO SCH (08:12)
[2018-08-20] MEDS: ENOXAPARIN SODIUM 40 MG/0.4 ML DISP.SYRIN SQ SCH (08:23)
[2018-08-20 08:51] VITALS: BP 167/74
--- NOTE | 2018-08-20 18:37 | NUR ---
MS/RN NOTE THE PATIENT ALERT AND ORIENTED X3. IN ROOM AIR AND SATURATION IS AT 97%. DENIES SOB. RESPIRATION REGULAR AND UNLABORED. DENIES PAIN. THE PATIENT IN NO APPARENT DISTRESS AT THIS TIME. RIGHT FOREARM G 22 PATENT AND NORMAL SALINE INFUSING AT 75ML/HR AND NO S/S INFILTRATION NOTED. BED LOW AND LOCKED. SIDE RAILS UP X3. CALL LIGHT WITHIN REACH. WILL ENDORSE TO FRAME STRAIGHTENER.
--- NOTE | 2018-08-20 19:30 | NUR ---
RECEIVED PATIENT UP IN CHAIR. AO X 3, ABLE TO MAKE NEEDS KNOWN. NO ACUTE DISTRESS NOTED. NO C/O PAIN. IV SITE PATENT, INTACT; IVF INFUSING ORDERED. SAFETY REMINDERS GIVEN. PATIENT'S ROOM HAS LOW BED WITH BILATERAL UPPER SIDE RAILS UP. CALL WONG WITHIN EASY REACH. WILL CONTINUE TO MONITOR.
[2018-08-20 20:00] VITALS: BP 166/82
[2018-08-21] MEDS: HYDROCODONE/APAP 10/325MG 1 EA TABLET PO PRN ×3 (01:18→14:34)
[2018-08-21] MEDS: MORPHINE SULFATE INJ 2 MG/ML DISP.SYRIN IV PRN ×2 (02:37→07:17)
--- NOTE | 2018-08-21 06:00 | NUR ---
PATIENT ASLEEP, EASILY AROUSABLE. RESPIRATIONS EVEN. NO SIGNS OF PAIN NOTED. DUE MEDS GIVEN WITH NO ASE NOTED. NEEDS ATTENDED. KEPT CLEAN AND DRY. SAFETY PRECAUTIONS AND COMFORT MEASURES IN PLACE. WILL GIVE REPORT TO DAY SHIFT FOR CONTINUITY OF CARE.
[2018-08-21 06:35] LABS: CARBON DIOXIDE 27 mmol/L (21-32); CHLORIDE 101 mmol/L (98-107); GLUCOSE 134 mg/dL (74-106); POTASSIUM 3.8 mmol/L (3.5-5.1); SODIUM SERUM 139 mmol/L (136-145); UREA NITROGEN, BLOOD 20 mg/dL (7-18)
[2018-08-21] MEDS: BLOOD SUGAR DIAGNOSTIC 1 EACH STRIP IN SCH ×4 (06:36→21:30)
[2018-08-21] MEDS: INSULIN REGULAR, HUMAN 100 UNIT/ML 3 ML VIAL SQ PRN ×4 (06:39→21:32)
[2018-08-21 06:44] LABS: BASOPHILS % (AUTO) 0.3 % (0.0-2.0); EOSINOPHILS % (AUTO) 2.4 % (0.0-6.0); HEMATOCRIT 39 % (33-45); LYMPHOCYTES # (AUTO) 1.3 /CMM (0.8-4.8); LYMPHOCYTES % (AUTO) 17.8 % (20.0-44.0); MEAN CORPUSCULAR HGB CONC 33 g/dl (31.0-36.0); MEAN CORPUSCULAR VOLUME 91 fL (82-100); MONOCYTES # (AUTO) 0.5 /CMM (0.1-1.30); MONOCYTES % (AUTO) 7.5 % (2.0-12.0); NEUTROPHILS # (AUTO) 5.2 /CMM (1.8-8.9); PLATELET COUNT (AUTO) 295 /CMM (150-450); RED BLOOD CELL COUNT(AUTO) 4.28 MIL/uL (4.0-5.2); WHITE BLOOD COUNT (AUTO) 7.3 K/uL (4.3-11.0)
--- NOTE | 2018-08-21 07:12 | NUR ---
RN OPENING NOTE PT WAS RECEIVED IN BED AT LOWEST AND LOCKED POSITION WITH SIDE RAILS UP X2, A/O X3 BREATHING EVEN AND UNLABORED ON RA, COMPLAINTS OF PAIN ON HER BACK, IV IS PATENT AND INTACT, AMBULATORY WITH ASSIST PER NIGHT RN, AWAITING FOR CT TO BE DONE, SAFETY PRECAUTIONS IN PLACE, CALL LIGHT WITHIN REACH, WILL MONITOR PT ACCORDINGLY
[2018-08-21] MEDS: PANTOPRAZOLE 40 MG TABLET.DR PO SCH (07:17)
[2018-08-21 08:00] VITALS: BP 187/79
[2018-08-21] MEDS: ESCITALOPRAM OXALATE (10 MG) 10 MG TABLET PO SCH (08:31)
[2018-08-21] MEDS: METOPROLOL TARTRATE 50 MG TABLET PO SCH ×2 (08:32→20:59)
[2018-08-21] MEDS: OXYBUTYNIN CHLORIDE 5 MG TABLET PO SCH (08:32)
[2018-08-21] MEDS: ALLOPURINOL 100 MG TABLET PO SCH (08:32)
[2018-08-21] MEDS: VALSARTAN 80 MG TABLET PO SCH (08:32)
[2018-08-21] MEDS: ENOXAPARIN SODIUM 40 MG/0.4 ML DISP.SYRIN SQ SCH (08:33)
[2018-08-21] MEDS ORDERED: HYDROCODONE/APAP 5/325MG 1 EACH TABLET PO PRN (10:00)
[2018-08-21] MEDS ORDERED: HYDROMORPHONE 1 MG/1 ML DISP.SYRIN IV ONE ×2 (10:24→18:20)
--- NOTE | 2018-08-21 10:30 | NUR ---
RN NOTE PT TAKEN FOR CT SCAN, DILAUDID AND XANAX GIVEN BEFORE HEADING DOWN
[2018-08-21] MEDS ORDERED: Magnesium 1GM/D5W 100ML PREMIX 100 ML IV SCH (10:32)
[2018-08-21] MEDS: ALPRAZOLAM 0.5 MG TABLET PO PRN (10:37)
--- NOTE | 2018-08-21 11:00 | NUR ---
RN NOTE PT BROUGHT BACK UP FROM CT
[2018-08-21] MEDS: IV NS 0.9% 1,000 ML IV PRN (12:09)
--- NOTE | 2018-08-21 15:51 | NUR ---
RN NOTE BP WAS NOTED TO BE 177/81, [facility] PAGED FOR PRN BP MEDICATION, ORDER GIVEN FOR PRN DOSE OF HYDRALAZINE 25MG PO Q6H, WILL IMPLEMENT AND CARRY OUT ACCORDINGLY
[2018-08-21] MEDS: hydrALAZINE HCL 25 MG TABLET PO PRN (15:58)
[2018-08-21 16:00] VITALS: BP 177/81
--- NOTE | 2018-08-21 17:34 | NUR ---
RN NOTE CALL RECEIVED FROM RADIOLOGIST REGARDING CT SCAN REPORT, HOSPITALIST [facility] PAGED, AWAITING CALL BACK TO INFORM OF RESULTS
--- NOTE | 2018-08-21 17:46 | NUR ---
RN NOTE HOSPITALIST [facility] MADE AWARE OF CT SCAN RESULTS, HE WILL LOOK AT, WILL AWAIT FURTHER ORDERS
[2018-08-21] MEDS ORDERED: IOHEXOL-350 100 ML VIAL IV ONE (18:19)
--- NOTE | 2018-08-21 18:30 | NUR ---
RN NOTE PHONE CALL RECEIVED FROM [facility], ORDERS FOR STAT BLOOD CX, ESR, AND CT WITH CONTRAST OF THE THORACIC SPINE. PER HOSPITALIST IT IS OKAY TO GIVE 1 MG DILAUDID BEFORE PROCEDURE. CONSENT FOR CT WITH CONTRAST SIGNED AT THIS TIME
--- NOTE | 2018-08-21 18:43 | NUR ---
RN CLOSING NOTE PT IN CHAIR RESTING COMFORTABLY AT THIS TIME, A/O X3 BREATHING EVEN AND UNLABORED ON RA, NO S/S OF ANY DISTRESS BUT STILL COMPLAINS OF PAIN ON HER BACK, IV IS PATENT AND INTACT, STAT ORDER FOR CT WITH CONTRAST OF THORACIC SPINE AT THIS TIME WITH CONSENTS AWAITING TO BE TAKEN DOWN, SAFETY PRECAUTIONS IN PLACE, CALL LIGHT WITHIN REACH, ALL NEEDS ATTENDED TO, WILL ENDORSE TO COOLING TOWER OPERATOR RN FOR PETRA.
--- NOTE | 2018-08-21 19:08 | NUR ---
RN NOTE 1MG OF DILAUDID GIVEN TO PT BEFORE HEADING TO BED FOR CT CONTRAST. PT COULD NOT STAND THE PAIN AND REFUSED TO GO TO CT AT THIS TIME AND SAID SHE WILL TRY AGAIN TOMORROW. X-RAY INFORMED, WILL ATTEMPT AGAIN TOMORROW AND ENDORSE TO ACCOUNTS PAYABLE TECHNICIAN
[2018-08-21 20:00] VITALS: BP 173/87
[2018-08-21] MEDS ORDERED: VANCOMYCIN 1 GM VIAL ONE (20:49)
[2018-08-21] MEDS ORDERED: CEFTRIAXONE 1 G VIAL ONE ×2 (20:50→23:11)
[2018-08-21] MEDS ORDERED: VANCOMYCIN 500 MG VIAL ONE (20:51)
[2018-08-21] MEDS: CEFTRIAXONE 2 G in IV D5W 100 ML IV SCH (20:58)
[2018-08-21] MEDS ORDERED: VANCOMYCIN 1.5 GM in IV NS 0.9% 500 ML IV ONE (21:00)
[2018-08-21 22:00] VITALS: BP 145/74
[2018-08-22] MEDS: MORPHINE SULFATE INJ 2 MG/ML DISP.SYRIN IV PRN ×2 (00:46→06:01)
[2018-08-22] MEDS: HYDROCODONE/APAP 10/325MG 1 EA TABLET PO PRN ×2 (02:59→11:28)
--- NOTE | 2018-08-22 06:00 | NUR ---
PATIENT AWAKE. RESPIRATIONS EVEN. MONITORED FOR PAIN. DUE MEDS GIVEN WITH NO ASE NOTED. NEEDS ATTENDED. KEPT CLEAN AND DRY. SAFETY PRECAUTIONS AND COMFORT MEASURES IN PLACE. WILL GIVE REPORT TO DAY SHIFT FOR CONTINUITY OF CARE.
[2018-08-22] MEDS: BLOOD SUGAR DIAGNOSTIC 1 EACH STRIP IN SCH ×4 (06:37→21:20)
[2018-08-22] MEDS: INSULIN REGULAR, HUMAN 100 UNIT/ML 3 ML VIAL SQ PRN ×3 (06:37→16:58)
[2018-08-22] MEDS: IV NS 0.9% 1,000 ML IV PRN (07:01)
[2018-08-22] MEDS: PANTOPRAZOLE 40 MG TABLET.DR PO SCH (07:54)
[2018-08-22] MEDS: ALPRAZOLAM 0.5 MG TABLET PO PRN (07:54)
[2018-08-22 08:00] VITALS: BP 213/118
--- NOTE | 2018-08-22 08:00 | NUR ---
MS RN NOTES PATIENT IN BED RESTING NO SOB OR ACUTE DISTRESS NOTED. PATIENT ALERT, ORIENTED X3. PATIENT NOTED WITH INCREASED BP, AM BLOOD PRESSURE MEDICATIONS ADMINISTERED. PERIPHERAL IV INTACT PATENT. BED IN LOW LOCKED POSITION. CALL LIGHT WITHIN REACH. WILL CONTINUE TO MONITOR.
[2018-08-22] MEDS: METOPROLOL TARTRATE 50 MG TABLET PO SCH ×2 (08:04→21:24)
[2018-08-22] MEDS: VALSARTAN 80 MG TABLET PO SCH (08:04)
[2018-08-22] MEDS ORDERED: FEE PK DOSING 1 MIN EA MC ONE (08:16)
[2018-08-22] MEDS: ALLOPURINOL 100 MG TABLET PO SCH (08:55)
[2018-08-22] MEDS: CEFTRIAXONE 2 G in IV D5W 100 ML IV SCH ×2 (08:55→21:20)
[2018-08-22] MEDS: ESCITALOPRAM OXALATE (10 MG) 10 MG TABLET PO SCH (08:55)
[2018-08-22] MEDS: OXYBUTYNIN CHLORIDE 5 MG TABLET PO SCH (08:55)
[2018-08-22] MEDS: ENOXAPARIN SODIUM 40 MG/0.4 ML DISP.SYRIN SQ SCH (08:57)
[2018-08-22] MEDS ORDERED: HYDROMORPHONE 1 MG/1 ML DISP.SYRIN IV PRN (11:00)
[2018-08-22] MEDS: CLOTRIMAZOLE 1% 15 GM TUBE TP SCH ×2 (11:29→16:33)
[2018-08-22] MEDS ORDERED: LIDOCAINE 1% INJ 50 ML MDV IJ ONE (11:30)
[2018-08-22] MEDS: DEXAMETHASONE SOD PHOSPHATE 10 MG/ML VIAL IV SCH ×3 (12:07→23:32)
--- NOTE | 2018-08-22 15:00 | NUR ---
MS RN NOTES DR. CERON TRIED ATTEMPTING TO PERFORM BONE MARROW BIOPSY. BONE MARROW BIOPSY HELD AT THIS MOMENT DUE TO PATIENTS PAIN AND PATIENT UNABLE TO HOLD POSITION. HOLD BONE MARROW BIOPSY AT THIS MOMENT PENDING CT RESULTS.
[2018-08-22] MEDS ORDERED: LORAZEPAM INJ 2 MG/ML VIAL IV ONE (15:30)
--- NOTE | 2018-08-22 15:30 | NUR ---
MS RN NOTES BONE MARROW BIOPSY HELD. ATIVAN WASTED WITH GEREMIAS BRYANT SINCE PATIENT DID NOT HAVE BIOPSY AND ATIVAN WAS NOT GIVEN. PHARMACY MADE AWARE.
[2018-08-22 16:00] VITALS: BP 185/75
[2018-08-22] MEDS ORDERED: IOHEXOL-300 100 ML VIAL IV ONE (16:02)
[2018-08-22] MEDS ORDERED: IV NS 0.9% 250 ML IV ONE (16:03)
[2018-08-22] MEDS ORDERED: CT SWABBABLE VALVE TRANS SET 1 EA INFUS.SET MC ONE (16:03)
[2018-08-22] MEDS: VANCOMYCIN 1.25 GM in IV D5W 500 ML IV SCH (16:33)
[2018-08-22 16:45] LABS: BASOPHILS % (AUTO) 0.2 % (0.0-2.0); EOSINOPHILS % (AUTO) 0.1 % (0.0-6.0); HEMATOCRIT 39 % (33-45); LYMPHOCYTES # (AUTO) 0.7 /CMM (0.8-4.8); LYMPHOCYTES % (AUTO) 9.4 % (20.0-44.0); MEAN CORPUSCULAR HGB CONC 33 g/dl (31.0-36.0); MEAN CORPUSCULAR VOLUME 91 fL (82-100); MONOCYTES # (AUTO) 0.1 /CMM (0.1-1.30); MONOCYTES % (AUTO) 1.5 % (2.0-12.0); NEUTROPHILS # (AUTO) 6.6 /CMM (1.8-8.9); NEUTROPHILS % (AUTO) 88.8 % (43.0-81.0); PLATELET COUNT (AUTO) 300 /CMM (150-450); RED BLOOD CELL COUNT(AUTO) 4.34 MIL/uL (4.0-5.2); WHITE BLOOD COUNT (AUTO) 7.4 K/uL (4.3-11.0)
[2018-08-22 16:56] LABS: CALCIUM, SERUM 8.8 mg/dL (8.5-10.1); CARBON DIOXIDE 28 mmol/L (21-32); CHLORIDE 98 mmol/L (98-107); CREATININE 0.9 mg/dL (0.6-1.3); GLUCOSE 175 mg/dL (74-106); MAGNESIUM 1.5 mg/dL (1.8-2.4); POTASSIUM 3.8 mmol/L (3.5-5.1); SODIUM SERUM 136 mmol/L (136-145); UREA NITROGEN, BLOOD 12 mg/dL (7-18)
[2018-08-22] MEDS: hydrALAZINE HCL 25 MG TABLET PO PRN (17:00)
--- NOTE | 2018-08-22 18:59 | NUR ---
MS RN NOTES PATIENT IN BED RESTING NO SOB OR ACUTE DISTRESS NOTED. PATIENT ALERT, ORIENTED X2 NOTED WITH CONFUSION AFTER ADMINISTERING DILAUDID. ALL DUE MEDICATIONS ADMINISTERED. ALL NEEDS MET. WILL ENDORSE CARE TO PM SHIFT.
--- NOTE | 2018-08-22 19:30 | NUR ---
MS/RN OPENING NOTES PT RECEIVED AWAKE, SITTING AT THE EDGE OF THE BED. A/OX2. PT IS CONFUSED AFTER ADMINISTRATION OF DILAUDID. ON ROOM AIR, BREATHING EVEN AND UNLABORED. DENIES SOB AND PAIN. IN NO ACUTE DISTRESS. IV TO RAC AND MIKE MIDLINE PATENT AND INTACT IVF RUNNING ORDERED. BED IN LOW/LOCKED POSITION WITH CALL LIGHT IN REACH. HOB ELEVATED. BILAT. UPPER SIDE RAILS IN PLACE. WILL CONTINUE TO MONITOR
[2018-08-22 19:48] VITALS: BP 156/82
--- NOTE | 2018-08-22 21:20 | NUR ---
MS/RN NOTES PT HAVING PARANOID HALLUCINATIONS. FAMILY CAME, FREQUENT REORIENTATION PROVIDED. PER FAMILY REQUEST, PLEASE AVOID DILAUDID MUCH POSSIBLE. ABLE TO ADMINISTER IV ROCEPHIN AND AGREES TO GETTING IV MAGNESIUM, HOWEVER PT REFUSING INSULIN FOR BGL 195. WILL CONTINUE TO MONITOR. SAFETY PRECAUTIONS IMPLEMENTED
[2018-08-22] MEDS: Magnesium 1GM/D5W 100ML PREMIX 100 ML IV SCH (23:37)
[2018-08-23] MEDS: Magnesium 1GM/D5W 100ML PREMIX 100 ML IV SCH (00:33)
[2018-08-23] MEDS: HYDROCODONE/APAP 10/325MG 1 EA TABLET PO PRN ×2 (00:44→20:11)
--- NOTE | 2018-08-23 00:45 | NUR ---
MS/RN NOTES PT C/O OF 8 PAIN TO BACK. ADMINISTERED PRN NORCO 10. REPOSITIONED PT TOLERATED
--- NOTE | 2018-08-23 03:00 | NUR ---
MS/RN NOTES PT LESS CONFUSED AND HALLUCINATIONS FROM PREVIOUS DILAUDID AND NORCO SUBSIDING. PER FAMILY PLEASE AVOID DILAUDID MUCH POSSIBLE. ASSISTED PT TO THE CHAIR DUE TO PT HAVING TOO MUCH PAIN LAYING DOWN IN BED. PT MUCH MORE COMFORTABLE IN THE CHAIR. SLEEPING NOW.
[2018-08-23 06:10] LABS: BASOPHILS % (AUTO) 0.1 % (0.0-2.0); EOSINOPHILS % (AUTO) 0.1 % (0.0-6.0); HEMATOCRIT 41 % (33-45); HEMOGLOBIN 13.5 g/dL (11.5-14.8); LYMPHOCYTES # (AUTO) 0.7 /CMM (0.8-4.8); LYMPHOCYTES % (AUTO) 10.1 % (20.0-44.0); MEAN CORPUSCULAR HGB CONC 33 g/dl (31.0-36.0); MEAN CORPUSCULAR VOLUME 91 fL (82-100); MONOCYTES # (AUTO) 0.2 /CMM (0.1-1.30); MONOCYTES % (AUTO) 2.7 % (2.0-12.0); PLATELET COUNT (AUTO) 357 /CMM (150-450); RED BLOOD CELL COUNT(AUTO) 4.51 MIL/uL (4.0-5.2); WHITE BLOOD COUNT (AUTO) 6.9 K/uL (4.3-11.0)
[2018-08-23 06:25] LABS: CALCIUM, SERUM 9.1 mg/dL (8.5-10.1); CARBON DIOXIDE 27 mmol/L (21-32); CHLORIDE 95 mmol/L (98-107); GLUCOSE 194 mg/dL (74-106); POTASSIUM 3.5 mmol/L (3.5-5.1); SODIUM SERUM 133 mmol/L (136-145); UREA NITROGEN, BLOOD 15 mg/dL (7-18)
[2018-08-23] MEDS: DEXAMETHASONE SOD PHOSPHATE 10 MG/ML VIAL IV SCH ×4 (06:26→23:02)
[2018-08-23] MEDS: BLOOD SUGAR DIAGNOSTIC 1 EACH STRIP IN SCH ×4 (06:32→21:01)
[2018-08-23] MEDS: INSULIN REGULAR, HUMAN 100 UNIT/ML 3 ML VIAL SQ PRN ×4 (06:33→21:40)
[2018-08-23] MEDS: PANTOPRAZOLE 40 MG TABLET.DR PO SCH (06:37)
--- NOTE | 2018-08-23 07:37 | NUR ---
MS/RN OPENING NOTE PATIENT NOTED UP IN CHAIR IN STABLE CONDITION. A/O X 3. NO SIGNS OF ACUTE DISTRESS. NO COMPLAIN OF PAIN AND DISCOMFORT AT THIS TIME. ALL NEEDS ATTENDED TO. CALL LIGHT WITHIN REACH. WILL CONTINUE TO MONITOR TO ENSURE SAFETY.
--- NOTE | 2018-08-23 07:38 | NUR ---
MS/RN CLOSING NOTES PT SITTING IN THE CHAIR. A/OX3. DENIES HALLUCINATIONS. ALERT X3 NOW. REMAINS ON ROOM AIR, BREATHING EVEN AND UNLABORED. DENIES SOB AND PAIN AT THIS TIME. MIKE MIDLINE PATENT AND INTACT, RAC PATENT AND INTACT. IVF CURRENTLY ON HOLD. ENCOURAGED PO FLUIDS. SNACKS PROVIDED. SITTING COMFORTABLY IN THE CHAIR WITHOUT PAIN. BED IN LOW/LOCKED POSITION. ENDORSED TO DAY SHIFT RN PETRA.
--- NOTE | 2018-08-23 07:42 | NUR ---
WOUND CARE CONSULT WOUND CARE RECEIVED CONSULT FOR ABD AND HIP FOLD EXCORIATIONS. WOUND CARE WILL DEFER CONSULT AND TREATMENT PLANS TO PLASTIC SURGICAL TEAM WHO ARE CURRENTLY FOLLOWING THIS PATIENT. PATIENT WITH POORNIMA AT 19, WILL SEE PRN.
[2018-08-23 08:00] VITALS: BP 176/98
[2018-08-23] MEDS: CEFTRIAXONE 2 G in IV D5W 100 ML IV SCH ×2 (08:31→20:11)
[2018-08-23] MEDS: ESCITALOPRAM OXALATE (10 MG) 10 MG TABLET PO SCH (08:32)
[2018-08-23] MEDS: VALSARTAN 80 MG TABLET PO SCH (08:32)
[2018-08-23] MEDS: METOPROLOL TARTRATE 50 MG TABLET PO SCH ×2 (08:32→20:59)
[2018-08-23] MEDS: OXYBUTYNIN CHLORIDE 5 MG TABLET PO SCH (08:32)
[2018-08-23] MEDS: ALLOPURINOL 100 MG TABLET PO SCH (08:32)
[2018-08-23] MEDS: VANCOMYCIN 1.25 GM in IV D5W 500 ML IV SCH (08:33)
[2018-08-23] MEDS: ENOXAPARIN SODIUM 40 MG/0.4 ML DISP.SYRIN SQ SCH (08:38)
[2018-08-23] MEDS: CLOTRIMAZOLE 1% 15 GM TUBE TP SCH ×2 (08:45→17:02)
[2018-08-23 16:00] VITALS: BP_SYST 176; BP_SYST 177; BP_DIAS 96; BP_DIAS 98
[2018-08-23] MEDS ORDERED: LACTOBACILLUS RHAMNOSUS GG 1 EACH CAP.SPRINK PO SCH (17:00)
[2018-08-23] MEDS: IV NS 0.9% 1,000 ML IV PRN (17:04)
[2018-08-23] MEDS ORDERED: CEFT2FRO2 IV (17:14)
[2018-08-23] MEDS: hydrALAZINE HCL 25 MG TABLET PO PRN (17:14)
[2018-08-23] MEDS ORDERED: DEXA10VI2 IV (17:14)
[2018-08-23] MEDS ORDERED: VANC1.252 IV (17:14)
[2018-08-23] MEDS ORDERED: RXVAN XX (17:14)
[2018-08-23] MEDS ORDERED: LACT1CAP72 PO (17:14)
--- NOTE | 2018-08-23 17:30 | NUR ---
MS/RN SEEN BY ZACH FONSECA WITH ORDERS TO DC TO HIGHER LEVEL OF CARE. SPOKE WITH FELICIA CHAPA, PER EDUARD PATIENT ACCEPTED AT [facility], AWAITING FOR ROOM AND BED NUMBER AT THIS TIME.
--- NOTE | 2018-08-23 18:34 | NUR ---
MS/RN CLOSING NOTE PATIENT IN BED IN STABLE CONDITION. A/O X 2-3, WITH EPISODES OF FORGETFULNESS. NO SIGNS OF ACUTE DISTRESS. NO COMPLAIN OF PAIN OR DISCOMFORT. HAS A STANDING DISCHARGE ORDER TO [facility]UTE HOSP[facility] TO [facility], PER FELICIA CHAPA PATIENT ALREADY ACCEPTED THERE BUT WAITING FOR ROOM AND BED NUMBER, ONCE BED NUMBER AVAILABLE TO CALL [facility] FOR [facility]. ALL NEEDS ATTENDED TO AT THIS TIME. CALL LIGHT WITHIN REACH. WILL ENDORSE TO NEXT SHIFT FOR CONTINUITY OF CARE.
--- NOTE | 2018-08-23 19:18 | NUR ---
MS/RN SPOKE WITH MARIAN SERRANO AND NOTIFIED PATIENT BP NOTED ELEVATED POST HYDRALAZINE 25MG PO 179/111, 81. PER MARIAN SERRANO GIVE HYDRALAZINE 10MG IV X 1 NOW.
[2018-08-23] MEDS ORDERED: hydrALAZINE HCL IV 20 MG VIAL IV ONE (19:30)
--- NOTE | 2018-08-23 19:30 | NUR ---
MS RN NOTE: PATIENT SITTING IN CHAIR, NO ACUTE DISTRESS NOTED. BREATHING EVEN AND UNLABORED, NO SOB NOTED. MIDLINE TO MIKE IN PLACE, INFUSING NS AT 75ML/HR. PATIENT TO BE TRANSFERRED TO [facility] FROM HIGHER LEVEL OF CARE, AWAITING BED. CALL LIGHT IN REACH. WILL CONTINUE TO MONITOR.
[2018-08-23 20:07] VITALS: BP 210/93
--- NOTE | 2018-08-23 20:15 | NUR ---
MS RN NOTE: PATIENT COMPLAINS OF PAIN TO BACK 12/08, NORCO 10/325MG 1 TAB ORAL GIVEN PER MD ORDER. WILL CONTINUE TO MONITOR.
--- NOTE | 2018-08-23 21:00 | NUR ---
MS RN NOTE: RECEIVED CALL FROM [facility], THAT PATIENT HAS A BED ASSIGNED TO ROOM 4436-1. TO CALL FOR REPORT AT [phone], EXT. [phone]. TO INFORM DAUGHTER THAT PATIENT WILL BE PICKED UP TONIGHT. CALLED [facility] AND PATIENT ON WILL CALL, PATIENT TO BE PICKED UP FROM 1-2 HOURS. WILL FINALIZE DISCHARGE PAPERWORK.
--- NOTE | 2018-08-23 21:45 | NUR ---
MS RN NOTE: CALLED PATIENT DAUGHTER NIR AT [phone] AND INFORM THAT PATIENT WILL BE PICKED UP IN 1 -2 HOURS. CALLED [facility] AND GAVE REPORT TO TAMMY. DISCHARGE PAPERWORK COMPLETED AND SIGNED. TRANSFER CONSENT AND HOSPITAL ACUTE DISCHARGE INSTRUCTIONS COMPLETED. AWAITING FOR INTERVENTIONAL TECH. WILL CONTINUE TO MONITOR.
[2018-08-23] MEDS: ALPRAZOLAM 0.5 MG TABLET PO PRN (22:03)
--- NOTE | 2018-08-23 22:15 | NUR ---
MS RN NOTE: PATIENT VERY ANXIOUS AND WORRIED ABOUT TRANSFER, XANAX 0.5MG 1 TAB ORAL GIVEN PER MD ORDER. WILL CONTINUE TO MONITOR.
[2018-08-23 23:30] VITALS: BP 178/76
--- NOTE | 2018-08-23 23:30 | NUR ---
MS RN NOTE: PATIENT READY FOR TRANSFER TO [facility] ROOM 4436-1, REPORT GIVEN TO EMT, BELONGING WITH EMT. PATIENT GIVEN SCHEDULED DECADRON 6MG IV PER MD ORDER FOR PAIN ON TRANSPORT. CALLED [facility] AND INFORMED TAMMY THAT PATIENT IS READY FOR TRANSFER. MIKE MIDLINE IN PLACE. VITAL SIGN STABLE, NO ACUTE DISTRESS NOTED. PATIENT OFF FLOOR IN STABLE CONDITION.
== END 2018-08-23 23:25 | disposition short-term general hospital (02) | DRG 546 ==
LOC: ER 08:17 → MEDSG2 10:55
PROVIDERS: ADMIT Nurse Practitioner Acute Care; ATTEND Nurse Practitioner Acute Care
PROC: 05H633Z Insertion of Infusion Device into Left Subclavian Vein, Percutaneous Approach (ICD-10-PCS; principal; 2018-08-22)
PROC: B547ZZA Ultrasonography of Left Subclavian Vein, Guidance (ICD-10-PCS; 2018-08-22)
DX: M48.8X4 Other specified spondylopathies, thoracic region (principal); S22.079A Unspecified fracture of T9-T10 vertebra, initial encounter for closed fracture; M46.24 Osteomyelitis of vertebra, thoracic region; Z68.42 Body mass index [BMI] 45.0-49.9, adult; G95.29 Other cord compression; E11.69 Type 2 diabetes mellitus with other specified complication; I10 Essential (primary) hypertension; F41.9 Anxiety disorder, unspecified; R32 Unspecified urinary incontinence; G89.29 Other chronic pain; Z96.641 Presence of right artificial hip joint; M48.05 Spinal stenosis, thoracolumbar region; M45.6 Ankylosing spondylitis lumbar region; I16.0 Hypertensive urgency; K76.0 Fatty (change of) liver, not elsewhere classified; E66.01 Morbid (severe) obesity due to excess calories; D47.2 Monoclonal gammopathy; R53.1 Weakness; E86.0 Dehydration; L30.4 Erythema intertrigo; L98.8 Other specified disorders of the skin and subcutaneous tissue; M47.898 Other spondylosis, sacral and sacrococcygeal region; M46.44 Discitis, unspecified, thoracic region; W18.30XA Fall on same level, unspecified, initial encounter; Y92.89 Other specified places as the place of occurrence of the external cause
CPT/HCPCS: 36415; 71045-TC; 72128-TC; 72129-TC; 80048-TC; 80061-TC; 80076-TC; 82962-TC; 83690-TC; 83735-TC; 83880; 84100-TC; 84443-TC; 84484-TC; 85025-TC; 85652-TC; 86140-TC; 87040-TC; 87081-TC; A6403; G0378; J0696; J1100; J1170; J1650; J1815; J2060; J2270; J2405; J3370; J3475; J3490; J7030; J7040; J7050; J7060; Q9967